=== PATIENT | female | born 1965 | race American Indian/Alaskan Native ===

== ENCOUNTER 2017-06-11 16:05 | Emergency (ER) | payer SELFPAY ==
[2017-06-11 16:11] VITALS: BP 134/96
[2017-06-11 16:38] LABS: Bilirubin,Urine Negative (Negative); Blood,Urine Small (Negative); Color,Urine Yellow (Yellow)
[2017-06-11 16:40] LABS: Urobilinogen,Urine < 2.0 mg/dL (<2.0)
[2017-06-11 16:43] LABS: Calcium Oxalate Crystals,Urine 1+
[2017-06-11 16:48] LABS: Eosinophils # (Auto) 0.1 K/mm3 (0.0-0.4); Eosinophils % (Auto) 1.6 % (0.0-4.3); Hematocrit 47.9 % (30.3-42.9); Hemoglobin 15.7 gm/dl (10.1-14.3); Lymphocytes # (Auto) 1.8 K/mm3 (1.2-5.4); Lymphocytes % (Auto) 44.1 % (13.4-35.0); Mean Corpuscular HGB Conc 33 % (30-34); Mean Corpuscular Hemoglobin 28 pg (28-32); Mean Corpuscular Volume 86 fl (79-97); Monocytes # (Auto) 0.3 K/mm3 (0.0-0.8); Monocytes % (Auto) 7.3 % (0.0-7.3); Platelet Count 274 K/mm3 (140-440); Red Blood Count 5.55 M/mm3 (3.65-5.03); Red Cell Distribution Width 14.9 % (13.2-15.2)
[2017-06-11 17:00] LABS: Alanine Aminotransferase 9 units/L (7-56); Albumin 3.9 g/dL (3.9-5); BUN/Creatinine Ratio 15; Blood Urea Nitrogen 12 mg/dL (7-17); Calcium 9.6 mg/dL (8.4-10.2); Hemolysis Index 13; Lipase 22 units/L (13-60)
--- NOTE | 2017-06-11 18:05 | Emergency Department Report ---
HPI - General Chief Complaint: Medical Clearance Time Seen by Provider: 06/11/17 18:02 - HPI HPI: 52-year-old black female present with complaints of intermittent constipation with other periods of loose stool leakage. No nausea, no vomiting no fever no chills. ED Past Medical Hx - Past Medical History Hx Hypertension: No Hx CVA: No Hx Psychiatric Treatment: Yes (bipolar, schizo, anxiety, substance abuse) - Surgical History Additional Surgical History: Partial hyster. ectopic - Social History Smoking Status: Never Smoker Substance Use Type: Alcohol, Cocaine - Medications Home Medications: Home Medications Medication Instructions Recorded Confirmed Last Taken Type Famotidine [Pepcid] 20 mg PO BID #60 tablet 08/09/15 Unknown Rx Ibuprofen [Motrin] 800 mg PO Q8HR PRN #30 tablet 08/09/15 Unknown Rx Docusate Sodium [Colace] 100 mg PO BID #60 capsule 06/11/17 Unknown Rx ED Review of Systems ROS: Stated complaint: DIZZINESS Other details as noted in HPI Comment: All other systems reviewed and negative Cardiovascular: denies: chest pain Gastrointestinal: constipation. denies: abdominal pain, nausea, vomiting Physical Exam - Physical Exam Vital Signs: Vital Signs 06/11/17 16:07 Temperature 98.4 F Pulse Rate 98 H Respiratory 18 Rate Blood Pressure 134/96 O2 Sat by Pulse 100 Oximetry Physical Exam: - Physical Exam Physical Exam: - General Limitations: No Limitations General appearance: alert, in no apparent distress. - Head Head exam: Present: atraumatic, normocephalic - Eye Eye exam: Present: normal appearance - ENT ENT exam: Present: mucous membranes moist - Neck Neck exam: Present: normal inspection - Respiratory Respiratory exam: Present: normal lung sounds bilaterally. Absent: respiratory distress - Cardiovascular Cardiovascular Exam: Present: normal rhythm. Absent: systolic murmur, diastolic murmur, rubs, gallop - GI/Abdominal GI/Abdominal exam: Present: soft, normal bowel sounds - Extremities Exam Extremities exam: Present: normal inspection - Back Exam Back exam: Present: normal inspection - Neurological Exam Neurological exam: Present: alert, oriented X3 - Psychiatric Psychiatric exam: normal affect and mood - Skin Skin exam: Present: warm, dry, intact, normal color. Absent: rash ED Course Vital Signs 06/11/17 16:07 Temperature 98.4 F Pulse Rate 98 H Respiratory 18 Rate Blood Pressure 134/96 O2 Sat by Pulse 100 Oximetry ED Medical Decision Making - Lab Data Result diagrams: 06/11/17 16:36 06/11/17 16:36 Critical care attestation.: If time is entered above; I have spent that time in minutes in the direct care of this critically ill patient, excluding procedure time. ED Disposition Clinical Impression: Constipation Qualifiers: Constipation type: other constipation type Qualified Code(s): K59.09 - Other constipation Disposition: DC- TO HOME OR SELFCARE Is pt being admited?: No Does the pt Need Aspirin: No Condition: Stable Prescriptions: Docusate Sodium [Colace] 100 mg PO BID #60 capsule Referrals: PRIMARY CARE, [Primary Care Provider] - 3-5 Days
== END 2017-06-11 19:10 | disposition home or self-care (01) ==
LOC: ED 16:05
DX: K59.00 Constipation, unspecified (principal); F31.9 Bipolar disorder, unspecified; F41.9 Anxiety disorder, unspecified; F20.9 Schizophrenia, unspecified; Z90.711 Acquired absence of uterus with remaining cervical stump
CPT/HCPCS: 36415; 80053; 81001; 83690; 85025; 99283

== ENCOUNTER 2018-02-21 21:50 | Emergency (ER) | payer SELFPAY ==
[2018-02-21] MEDS ORDERED: TYLENOL ONE (22:07)
[2018-02-21 22:11] VITALS: BP 126/76
[2018-02-22] MEDS ORDERED: TYLENOL PO ONE (01:16)
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
[2018-02-22] MEDS ORDERED: FLAGYL PO ONE (02:42)
[2018-02-22] MEDS ORDERED: ZITHROMAX PO ONE (02:42)
[2018-02-22] MEDS ORDERED: ROCEPHIN IM ONE (02:42)
[2018-02-22] MEDS ORDERED: XYLOCAINE 1% MPF 5 mL INFILTRATI ONE (02:42)
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
== END 2018-02-22 03:40 | disposition home or self-care (01) ==
LOC: ED 21:50
DX: S16.1XXA Strain of muscle, fascia and tendon at neck level, initial encounter (principal); F31.9 Bipolar disorder, unspecified; F20.9 Schizophrenia, unspecified; F41.9 Anxiety disorder, unspecified; F17.200 Nicotine dependence, unspecified, uncomplicated; Z88.5 Allergy status to narcotic agent; Z90.711 Acquired absence of uterus with remaining cervical stump; Y04.8XXA Assault by other bodily force, initial encounter; Y93.89 Activity, other specified; Y92.89 Other specified places as the place of occurrence of the external cause; Y99.8 Other external cause status
CPT/HCPCS: 70450; 72125; 99284

== ENCOUNTER 2018-10-05 08:31 | Emergency (ER) | payer SELFPAY ==
[2018-10-05 08:38] VITALS: BP 141/99
[2018-10-05] MEDS ORDERED: ULTRAM PO ONE (10:17)
[2018-10-05] MEDS ORDERED: ANTIBIOTIC OINT TP ONE (10:17)
--- NOTE | 2018-10-05 10:26 | Emergency Department Report ---
HPI - General Chief Complaint: Skin/Abscess/Foreign Body Time Seen by Provider: 10/05/18 10:09 - HPI HPI: Room 39 The pt is a 53 y/o F p/w a cc of Left ear pain. The pt c/o pain to the left ear for 2-3 days. The pt states it feels as though there is a bug in her ear as she occ feels it move. Pt c/o pain. ED Past Medical Hx - Past Medical History Hx Psychiatric Treatment: Yes (bipolar, schizo, anxiety, substance abuse) - Surgical History Additional Surgical History: Partial hyster. ectopic - Family History Family history: no significant - Social History Smoking Status: Current Every Day Smoker (1/2 ppd) Substance Use Type: None (denies illicit drug use), Alcohol (occ) - Medications Home Medications: Home Medications Medication Instructions Recorded Confirmed Last Taken Type Famotidine [Pepcid] 20 mg PO BID #60 tablet 08/09/15 Unknown Rx Ibuprofen [Motrin] 800 mg PO Q8HR PRN #30 tablet 08/09/15 Unknown Rx Docusate Sodium [Colace] 100 mg PO BID #60 capsule 06/11/17 Unknown Rx Menthol/Camphor [[place] [facility] 1 applicatio TP QID PRN #1 tube 02/22/18 Unknown Rx Ointment] Tramadol HCl [Ultram] 50 mg PO Q6H PRN #12 tablet 02/22/18 Unknown Rx Bacitracin Zinc Oint [Antibiotic 1 applicatio TP TID #1 tube 10/05/18 Unknown Rx Oint] traMADol [Ultram] 50 mg PO Q6HR PRN #10 tablet 10/05/18 Unknown Rx ED Review of Systems ROS: Stated complaint: LFT EAR BUG/PAIN Other details as noted in HPI Constitutional: no symptoms reported Eyes: denies: eye pain ENT: ear pain Respiratory: no symptoms reported Cardiovascular: denies: chest pain Endocrine: no symptoms reported Gastrointestinal: denies: abdominal pain Genitourinary: denies: dysuria Musculoskeletal: denies: back pain Neurological: denies: headache Psychiatric: denies: homicidal thoughts, suicidal thoughts Physical Exam - Physical Exam Vital Signs: Vital Signs 10/05/18 08:35 Temperature 97.8 F Pulse Rate 91 H Respiratory 16 Rate Blood Pressure 141/99 O2 Sat by Pulse 100 Oximetry Physical Exam: Gen: WD, WN F lying on stretcher in NAD HEENT: NCAT, small subacute appearing ulceration to the left Maria Eugenia cavum ~1 cm in diameter. no drainage. TM clear. Scant amount of cerumen in canal but grossly unremarkable. No fb present Neck: Trachea midline Pulm: CTA B CV: rrr no m/r/g Abd: S/ND +BS, mild discomfort to palpation in the LLQ, RLQ and RUQ. no reboun d/guarding Skin: no diaphoresis Neuro: gcs 15 MS: no evidence of acute injury ED Course Vital Signs 10/05/18 08:35 Temperature 97.8 F Pulse Rate 91 H Respiratory 16 Rate Blood Pressure 141/99 O2 Sat by Pulse 100 Oximetry ED Medical Decision Making - Differential Diagnosis ulcer, malignancy Critical care attestation.: If time is entered above; I have spent that time in minutes in the direct care of this critically ill patient, excluding procedure time. ED Disposition Clinical Impression: Skin ulcer, Ear pain, left Disposition: DC-01 TO HOME OR SELFCARE Is pt being admited?: No Does the pt Need Aspirin: No Condition: Stable Instructions: Earache (ED) Prescriptions: Bacitracin Zinc Oint [Antibiotic Oint] 1 applicatio TP TID #1 tube traMADol [Ultram] 50 mg PO Q6HR PRN #10 tablet PRN Reason: Pain Referrals: SKYLER MOSCOSO MD [Staff Physician] - [facility] [place] (Dr Moscoso is an Ear Nose and Throat docotr. Please follow up with her for further evaluation) Time of Disposition: 10:30
[2018-10-05] MEDS ORDERED: TRIPLE ANTIBIOTIC TP ONE ×2 (10:36→10:37)
== END 2018-10-05 10:44 | disposition home or self-care (01) ==
LOC: ED 08:31
DX: H92.02 Otalgia, left ear (principal); L98.499 Non-pressure chronic ulcer of skin of other sites with unspecified severity; F31.9 Bipolar disorder, unspecified; F20.9 Schizophrenia, unspecified; F17.210 Nicotine dependence, cigarettes, uncomplicated; Z90.710 Acquired absence of both cervix and uterus; Z88.6 Allergy status to analgesic agent; Z79.899 Other long term (current) drug therapy
CPT/HCPCS: 99282; A6250

== ENCOUNTER 2018-10-19 15:47 | Inpatient (IN) | payer OTHER ==
[2018-10-19] MEDS ORDERED: NACL 0.9% 500 ML 500 ML IV ONE (15:54)
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
[2018-10-19 16:25] LABS: Hematocrit 40.4 % (30.3-42.9); Hemoglobin 13.2 gm/dl (10.1-14.3); Mean Corpuscular HGB Conc 33 % (30-34); Mean Corpuscular Volume 85 fl (79-97); Platelet Count 165 K/mm3 (140-440); Red Blood Count 4.76 M/mm3 (3.65-5.03); Red Cell Distribution Width 13.6 % (13.2-15.2)
[2018-10-19 16:37] LABS: Albumin 3.1 g/dL (3.9-5)
[2018-10-19 16:38] LABS: INR 1.22 (0.87-1.13)
--- NOTE | 2018-10-19 16:38 | Emergency Department Report ---
HPI - General Chief Complaint: Fever Time Seen by Provider: 10/19/18 15:54 - HPI HPI: 53-year-old -[place] female presents to the emergency department with the complaint of a 3 to four-day history of fever, nausea, vomiting, diarrhea and abdominal pain. She was initiated as a code sepsis secondary to her complaints with fever and tachycardia noted on vitals. She has a past medical history of bipolar disorder, schizophrenia, anxiety and previous substance abuse. She is a tobacco smoker but denies any recent illicit drug use. She has a surgical history of a partial hysterectomy and a previous ectopic . She has not taken anything for her symptoms prior to arrival. She does not have a primary care physician. ED Past Medical Hx - Past Medical History Previous Medical History?: Yes Hx Hypertension: No Hx CVA: No Hx Psychiatric Treatment: Yes (bipolar, schizo, anxiety, substance abuse) - Surgical History Past Surgical History?: Yes Additional Surgical History: Partial hyster. ectopic - Social History Smoking Status: Current Every Day Smoker Substance Use Type: None - Medications Home Medications: Home Medications Medication Instructions Recorded Confirmed Last Taken Type Famotidine [Pepcid] 20 mg PO BID #60 tablet 08/09/15 Unknown Rx Ibuprofen [Motrin] 800 mg PO Q8HR PRN #30 tablet 08/09/15 Unknown Rx Docusate Sodium [Colace] 100 mg PO BID #60 capsule 06/11/17 Unknown Rx Menthol/Camphor [[place] 1 applicatio TP QID PRN #1 tube 02/22/18 Unknown Rx Ointment] Tramadol HCl [Ultram] 50 mg PO Q6H PRN #12 tablet 02/22/18 Unknown Rx Bacitracin Zinc Oint [Antibiotic 1 applicatio TP TID #1 tube 10/05/18 Unknown Rx Oint] traMADol [Ultram] 50 mg PO Q6HR PRN #10 tablet 10/05/18 Unknown Rx ED Review of Systems ROS: Stated complaint: FEVER/ACHES/DIARRHEA Other details as noted in HPI Comment: All other systems reviewed and negative Constitutional: chills, fever Eyes: denies: eye pain, vision change ENT: denies: ear pain, throat pain Respiratory: denies: shortness of breath, wheezing Cardiovascular: denies: chest pain, palpitations Gastrointestinal: abdominal pain, nausea, vomiting, diarrhea Genitourinary: denies: dysuria, discharge Musculoskeletal: denies: back pain, arthralgia Skin: denies: rash, lesions Neurological: denies: headache, weakness Physical Exam - Physical Exam Vital Signs: Vital Signs 10/19/18 15:55 Temperature 101.4 F H Pulse Rate 116 H Respiratory 16 Rate Blood Pressure 70/47 Physical Exam: GENERAL: The patient is well-developed well-nourished. HENT: Normocephalic. Atraumatic. Patient has moist mucous membranes. EYES: Extraocular motions are intact. Pupils equal reactive to light bilaterally. NECK: Supple. Trachea is midline. CHEST/LUNGS: Clear to auscultation. There is no respiratory distress noted. HEART/CARDIOVASCULAR: Regular. There is mild tachycardia. There is no murmur. ABDOMEN: Abdomen is soft. There is some right upper quadrant and lower abdominal tenderness to palpation. No guarding. Patient has normal bowel sounds. There is no abdominal distention. SKIN: Skin is warm and dry. NEURO: The patient is awake, alert, and oriented. The patient is cooperative. The patient has no focal neurologic deficits. Normal speech. MUSCULOSKELETAL: There is no tenderness or deformity. There is no evidence of acute injury. ED Course Vital Signs 10/19/18 15:55 Temperature 101.4 F H Pulse Rate 116 H Respiratory 16 Rate Blood Pressure 70/47 ED Medical Decision Making - Lab Data Result diagrams: 10/19/18 15:58 10/19/18 15:58 - Radiology Data Radiology results: report reviewed, image reviewed interpreted by me: Chest x-ray does not show any acute process. There are no pleural effusions, obvious pneumonia and there is no pneumothorax. Abdominal x-ray showed nonspecific nonobstructive bowel gas CT abdomen pelvis wo con INDICATION: Right sided abd pain, renal insuff, fever. TECHNIQUE: All CT scans at this location are performed using the following dose modulation technique: Automated exposure control. Helical slices were obtained through the abdomen and pelvis. No contrast is administered. COMPARISON: 08/08/2015, CT scan FINDINGS: Abdomen: Lung bases are clear. Liver, spleen, pancreas, adrenal glands, and kidneys are grossly unremarkable on this noncontrasted study. There is a paucity of fat in the abdomen. Combination of lack of contrast and fat. There appears to be soft tissue structure in the retroperitoneum left para-aortic location which could represent an enlarged lymph node. Measures approximately 17 mm. Possible this could be vascular or represent collateral veins. There is no obstruction, inflammation, or free air. There are no abnormal collections. Pelvis: Bowel contained within the pelvis is unremarkable. There is no inflammatory change. There are no abnormal c ollections. On review of bone windows, no acute osseous abnormalities are seen. IMPRESSION: 1. There is a 1.7 cm soft tissue density structure in the left retroperitoneum possibly representing an enlarged lymph node. It is possible this could represent collateral veins. There is no obstruction, inflammation, or free air. There are no abnormal fluid collections. No renal or ureteral calculi are seen. There is no hydronephrosis. - Medical Decision Making This patient presents as a code stroke with a 3 to four-day history of some abdominal pain, nausea, vomiting and diarrhea. She presented with some hypotension and immediately was given some IV fluid resuscitation with some improvement. She was given a dose of Zofran and Zosyn. Chest x-ray did not ame w any pneumonia, pleural effusions or any other acute process. Abdominal x-ray shows nonspecific nonobstructive bowel gas. Labs show a mild leukocytosis, some renal insufficiency and a urinary tract infection. The patient had a CT scan of the abdomen and pelvis without contrast that does not show any significant or acute process other than a possible retroperitoneal lymph node. The patient will be admitted to the hospital for further evaluation and treatment and was accepted for admission by the hospitalist service. - Differential Diagnosis UTI, appendicitis, colitis, diverticulitis, C. difficile Critical Care Time: Yes Critical care time in (mins) excluding proc time.: 35 Critical care attestation.: If time is entered above; I have spent that time in minutes in the direct care of this critically ill patient, excluding procedure time. Critical care time was spent on this patient and doing her initial evaluation, multiple re- evaluations, ordering and interpretation of labs and imaging, ordering of IV fluid resuscitation and antibiotics, discussion with the patient and the hosp italist service. Critical Care Time: 35 minutes ED Disposition Clinical Impression: Dehydration Sepsis Qualifiers: Sepsis type: sepsis due to unspecified organism Sepsis acute organ dysfunction status: with acute organ dysfunction Severe sepsis acute organ dysfunction type: acute renal failure Acute renal failure type: unspecified Severe sepsis shock status: unspecified Qualified Code(s): A41.9 - Sepsis, unspecified organism; R65.20 - Severe sepsis without septic shock; N17.9 - Acute kidney failure, unspecified UTI (urinary tract infection) Qualifiers: Urinary tract infection type: acute cystitis Hematuria presence: without hematuria Qualified Code(s): N30.00 - Acute cystitis without hematuria Hypotension Qualifiers: Hypotension type: unspecified hypotension type Qualified Code(s): I95.9 - Hypotension, unspecified Nausea & vomiting Qualifiers: Vomiting type: unspecified Vomiting Intractability: non-intractable Qualified Code(s): R11.2 - Nausea with vomiting, unspecified Abdominal pain Qualifiers: Abdominal location: generalized Qualified Code(s): R10.84 - Generalized abdominal pain Acute renal failure Qualifiers: Acute renal failure type: unspecified Qualified Code(s): N17.9 - Acute kidney failure, unspecified Disposition: 09 OP ADMIT IP TO THIS HOSP Is pt being admited?: Yes Condition: Serious Time of Disposition: 19:23
[2018-10-19] MEDS ORDERED: TYLENOL PO ONE (16:39)
[2018-10-19] MEDS ORDERED: ZOFRAN IV ONE (16:39)
[2018-10-19] MEDS ORDERED: ZOSYN/NS 4.5GM/100ML 4.5 GM/100 ML VIAL IV ONE (16:40)
--- NOTE | 2018-10-19 17:13 | XRay Report ---
ABDOMEN 3 VIEW(S) INDICATION / CLINICAL INFORMATION: abd pain, sepsis. COMPARISON: None available. FINDINGS: There is no acute pleural or pulmonary disease on the chest x-ray TUBES / LINES: None. BOWEL GAS PATTERN: No significant abnormality. FREE AIR / EXTRALUMINAL GAS: None seen. ADDITIONAL FINDINGS: No significant additional findings. IMPRESSION: 1. No significant abnormality. Signer Name: J Carlos Kilgore MD Signed: 10/19/2018 5:08 PM Workstation Name: [id number]
[2018-10-19 17:21] LABS: RBC Morphology Normal; Total Cells Counted 100
[2018-10-19] MEDS ORDERED: NACL 0.9% 1000 ML 1,000 ML IV ONE ×2 (17:30→19:23)
[2018-10-19 17:52] LABS: Bilirubin,Urine NEG (Negative); Blood,Urine MOD (Negative); Color,Urine Amber (Yellow); Urobilinogen,Urine < 2.0 mg/dL (<2.0)
[2018-10-19 17:54] LABS: Protein,Urine >500 mg/dL (Negative); WBC,Urine > 182.0 /HPF (0.0-6.0)
--- NOTE | 2018-10-19 19:00 | Cat Scan Report ---
CT abdomen pelvis wo con INDICATION: Right sided abd pain, renal insuff, fever. TECHNIQUE: All CT scans at this location are performed using the following dose modulation technique: Automated exposure control. Helical slices were obtained through the abdomen and pelvis. No contrast is adminis tered. COMPARISON: 08/08/2015, CT scan FINDINGS: Abdomen: Lung bases are clear. Liver, spleen, pancreas, adrenal glands, and kidneys are grossly unrem arkable on this noncontrasted study. There is a paucity of fat in the abdomen. Combination of lack of contrast and fat. There appears to be soft tissue structure in the retroperitoneum left para-aortic location which coul d represent an enlarged lymph node. Measures approximately 17 mm. Possible this could be vascular or represent collateral veins. There is no obstruction, inflammation, or free air. There are no abnormal collections. Pelvis: Bowel contained within the pelvis is unremarkable. There is no inflammatory change. There are no abnormal collections. On review of bone windows, no acute osseous abnormalities are seen. IMPRESSION: 1. There is a 1.7 cm soft tissue density structure in the left retroperitoneum possibly representing an enlarged lymph node. It is possible this could represent collateral veins. There is no obstruction, inflammation, or free air. There are no abnormal fluid collections. No renal or ureteral calculi are seen. There is no hydronephrosis. Signer Name: Edmond Garcia MD Signed: 10/19/2018 6:56 PM Workstation Name: [id number]
[2018-10-19] MEDS ORDERED: ATIVAN IV PRN (20:03)
[2018-10-19] MEDS ORDERED: NACL 0.9% 1000 ML 1,000 ML ONE (21:21)
[2018-10-19] MEDS ORDERED: HEPARIN ONE (21:21)
--- NOTE | 2018-10-19 21:49 | History and Physical Report ---
History of Present Illness Date of examination: 10/19/18 Date of admission: 10/19/18 20:03 Chief complaint: fever, nausea, vomiting, diarrhea and abdominal pain History of present illness: 53-year-old -Citizen Of [place] female with history of bipolar, schizophrenia, anxiety, substance abuse, tobacco abuse, marijuana abuse who presents [facility] with complaints of abdominal pain, nausea, vomiting, diarrhea, fever and chills for the past 3-4 days. She describes her abdominal pain as crampy/achy which is accompanied by nausea, vomiting, and diarrhea. She rates her pain 4/10. Patient states that she thinks she had a fever but does not have a thermometer so was unable to check her temperature. She also reports periods of feeling really hot followed by chills. She has not taken anything to treat her symptoms. She does not have primary care physician and has not seen a doctor in over a year. Denies: Headache, hematemesis, hemoptysis, hematochezia, visual disturbances, gait dysfunction, or recent sick contact Past History Past Medical History: other (bipolar, schizophrenia, anxiety, substance abuse) Past Surgical History: hysterectomy (partial), Other (ectopic ) Social history: Lives alone, smoking (current activities smoker), other (marijuana abuse) Family history: no significant family history Medications and Allergies Allergies Allergy/AdvReac Type Severity Reaction Status Date / Time codeine Allergy Vomiting Verified 10/05/18 08:32 Home Medications Medication Instructions Recorded Confirmed Last Taken Type Famotidine [Pepcid] 20 mg PO BID #60 tablet 08/09/15 Unknown Rx Ibuprofen [Motrin] 800 mg PO Q8HR PRN #30 tablet 08/09/15 Unknown Rx Docusate Sodium [Colace] 100 mg PO BID #60 capsule 06/11/17 Unknown Rx Menthol/Camphor [[place] 1 applicatio TP QID PRN #1 tube 02/22/18 Unknown Rx Ointment] Tramadol HCl [Ultram] 50 mg PO Q6H PRN #12 tablet 02/22/18 Unknown Rx Bacitracin Zinc Oint [Antibiotic 1 applicatio TP TID #1 tube 10/05/18 Unknown Rx Oint] traMADol [Ultram] 50 mg PO Q6HR PRN #10 tablet 10/05/18 Unknown Rx Active Meds: Active Medications Acetaminophen (Tylenol) 650 mg PO Q6H PRN PRN Reason: Pain, Mild (1-3) Heparin Sodium (Porcine) (Heparin) 5,000 unit SUB-Q Q12HR KAY Sodium Chloride (Nacl 0.9% 1000 Ml) 1,000 mls @ 250 mls/hr IV ONCE ONE Stop: 10/19/18 23:22 Ceftriaxone Sodium (Rocephin/Ns 1 Gm/50 Ml) 1 gm in 50 mls @ 100 mls/hr IV Q24HR KAY; Protocol Stop: 10/22/18 10:29 Sodium Chloride (Nacl 0.9% 1000 Ml) 1,000 mls @ 125 mls/hr IV DIRECT KAY Lorazepam (Ativan) 0.5 mg IV Q4H PRN PRN Reason: Anxiety Nicotine (Habitrol) 14 mg TD QDAY KAY Review of Systems All systems: negative Gastrointestinal: abdominal pain, nausea, vomiting, diarrhea Exam - Physical Exam Narrative exam: Physical exam General appearance: Present: No acute distress, confused, oriented 3, disheveled, thin, middle-aged adult -Citizen Of [place] female - EENT Eyes: Present: PERRL, EOM ENT: hearing intact, poor dentition - Neck Neck: Present: supple, normal ROM - Respiratory Respiratory effort: Non-labored Respiratory: CTA bilaterally - Cardiovascular Heart rate: 75(bpm) Rhythm: SR Heart Sounds: Present: S1 & S2. Absent: rub, click - Extremities Extremities: no ischemia, pulses intact, - Peripheral Assessment Peripheral Pulses: within normal limits - Abdominal General gastrointestinal: soft, non-tender, normal bowel sounds - Integumentary Integumentary: Present: warm, dry, - Musculoskeletal Musculoskeletal: Normal gait -Neurological Neurological: CN II-XII grossly intact - Psychiatric Psychiatric: cooperative - Constitutional Vitals: Temp Pulse Resp BP Pulse Ox 99.4 F 75 18 90/55 98 10/19/18 18:05 10/19/18 19:16 10/19/18 19:16 10/19/18 19:16 10/19/18 19:16 Results - Labs CBC & Chem 7: 10/19/18 15:58 10/19/18 15:58 Labs: Laboratory Last Values WBC 13.0 K/mm3 (4.5-11.0) H 10/19/18 15:58 RBC 4.76 M/mm3 (3.65-5.03) 10/19/18 15:58 Hgb 13.2 gm/dl (10.1-14.3) 10/19/18 15:58 Hct 40.4 % (30.3-42.9) 10/19/18 15:58 MCV 85 fl (79-97) 10/19/18 15:58 MCH 28 pg (28-32) 10/19/18 15:58 MCHC 33 % (30-34) 10/19/18 15:58 RDW 13.6 % (13.2-15.2) 10/19/18 15:58 Plt Count 165 K/mm3 (140-440) 10/19/18 15:58 Add Manual Diff Complete 10/19/18 15:58 Total Counted 100 10/19/18 15:58 Seg Neuts % (Manual) 85.0 % (40.0-70.0) H 10/19/18 15:58 0 % 10/19/18 15:58 7.0 % (13.4-35.0) L 10/19/18 15:58 Reactive Lymphs % (Man) 0 % 10/19/18 15:58 5.0 % (0.0-7.3) 10/19/18 15:58 2.0 % (0.0-4.3) 10/19/18 15:58 1.0 % (0.0-1.8) 10/19/18 15:58 0 % 10/19/18 15:58 0 % 10/19/18 15:58 0 % 10/19/18 15:58 0 % 10/19/18 15:58 Nucleated RBC % Not Reportable 10/19/18 15:58 Seg Neutrophils # Man 11.1 K/mm3 (1.8-7.7) H 10/19/18 15:58 Band Neutrophils # 0.0 K/mm3 10/19/18 15:58 0.9 K/mm3 (1.2-5.4) L 10/19/18 15:58 Abs React Lymphs (Man) 0.0 K/mm3 10/19/18 15:58 0.7 K/mm3 (0.0-0.8) 10/19/18 15:58 0.3 K/mm3 (0.0-0.4) 10/19/18 15:58 0.1 K/mm3 (0.0-0.1) 10/19/18 15:58 0.0 K/mm3 10/19/18 15:58 0.0 K/mm3 10/19/18 15:58 0.0 K/mm3 10/19/18 15:58 Blast Cells # 0.0 K/mm3 10/19/18 15:58 WBC Morphology Not Reportable 10/19/18 15:58 Hypersegmented Neuts Not Reportable 10/19/18 15:58 Hyposegmented Neuts Not Reportable 10/19/18 15:58 Hypogranular Neuts Not Reportable 10/19/18 15:58 Not Reportable 10/19/18 15:58 Not Reportable 10/19/18 15:58 Not Reportable 10/19/18 15:58 Not Reportable 10/19/18 15:58 Not Reportable 10/19/18 15:58 Not Reportable 10/19/18 15:58 Not Reportable 10/19/18 15:58 Not Reportable 10/19/18 15:58 Plt Clumps, EDTA Not Reportable 10/19/18 15:58 Not Reportable 10/19/18 15:58 Not Reportable 10/19/18 15:58 Not Reportable 10/19/18 15:58 Plt Morphology Comment Not Reportable 10/19/18 15:58 RBC Morphology Normal 10/19/18 15:58 Dimorphic RBCs Not Reportable 10/19/18 15:58 Not Reportable 10/19/18 15:58 Not Reportable 10/19/18 15:58 Not Reportable 10/19/18 15:58 Not Reportable 10/19/18 15:58 Not Reportable 10/19/18 15:58 Not Reportable 10/19/18 15:58 Not Reportable 10/19/18 15:58 Not Reportable 10/19/18 15:58 Not Reportable 10/19/18 15:58 Not Reportable 10/19/18 15:58 Not Reportable 10/19/18 15:58 Not Reportable 10/19/18 15:58 Not Reportable 10/19/18 15:58 Not Reportable 10/19/18 15:58 Not Reportable 10/19/18 15:58 Not Reportable 10/19/18 15:58 Not Reportable 10/19/18 15:58 Not Reportable 10/19/18 15:58 Not Reportable 10/19/18 15:58 Acanthocytes (Spur) Not Reportable 10/19/18 15:58 Rouleaux Not Reportable 10/19/18 15:58 Not Reportable 10/19/18 15:58 Not Reportable 10/19/18 15:58 Not Reportable 10/19/18 15:58 Not Reportable 10/19/18 15:58 Hem Pathologist Commnt No 10/19/18 15:58 PT 15.1 Sec. (12.2-14.9) H 10/19/18 15:58 INR 1.22 (0.87-1.13) H 10/19/18 15:58 VBG pH 7.487 (7.320-7.420) H 10/19/18 15:58 Sodium 136 mmol/L (137-145) L 10/19/18 15:58 Potassium 3.4 mmol/L (3.6-5.0) L 10/19/18 15:58 Chloride 99.8 mmol/L (98-107) 10/19/18 15:58 Carbon Dioxide 22 mmol/L (22-30) 10/19/18 15:58 18 mmol/L 10/19/18 15:58 BUN 19 mg/dL (7-17) H 10/19/18 15:58 1.8 mg/dL (0.7-1.2) H 10/19/18 15:58 Estimated GFR 36 ml/min 10/19/18 15:58 11 % 10/19/18 15:58 Glucose 139 mg/dL (65-100) H 10/19/18 15:58 Lactic Acid 1.80 mmol/L (0.7-2.0) 10/19/18 20:56 Calcium 9.0 mg/dL (8.4-10.2) 10/19/18 15:58 0.70 mg/dL (0.1-1.2) 10/19/18 15:58 AST 26 units/L (5-40) 10/19/18 15:58 ALT 21 units/L (7-56) 10/19/18 15:58 85 units/L (35-129) 10/19/18 15:58 7.0 g/dL (6.3-8.2) 10/19/18 15:58 3.1 g/dL (3.9-5) L 10/19/18 15:58 0.8 % 10/19/18 15:58 Verito (Yellow) 10/19/18 17:21 Turbid (Clear) 10/19/18 17:21 6.0 (5.0-7.0) 10/19/18 17:21 Ur Specific [place] 1.016 (1.003-1.030) 10/19/18 17:21 >500 mg/dL (Negative) 10/19/18 17:21 Neg mg/dL (Negative) 10/19/18 17:21 Neg mg/dL (Negative) 10/19/18 17:21 Mod (Negative) 10/19/18 17:21 Neg (Negative) 10/19/18 17:21 Neg (Negative) 10/19/18 17:21 < 2.0 mg/dL (<2.0) 10/19/18 17:21 Ur Leukocyte Esterase Mod (Negative) 10/19/18 17:21 > 182.0 /HPF (0.0-6.0) H 10/19/18 17:21 22.0 /HPF (0.0-6.0) 10/19/18 17:21 U Epithel Cells (Auto) 33.0 /HPF (0-13.0) H 10/19/18 17:21 3+ /HPF 10/19/18 17:21 2+ /HPF 10/19/18 17:21 - Imaging and Cardiology Imaging and Cardiology: Abd XR: FINDINGS: There is no acute pleural or pulmonary disease on the chest x-ray TUBES / LINES: None. BOWEL GAS PATTERN: No significant abnormality. FREE AIR / EXTRALUMINAL GAS: None seen. ADDITIONAL FINDINGS: No significant additional findings. IMPRESSION: 1. No significant abnormality. CT ABD/Pelvis FINDINGS: Abdomen: Lung bases are clear. Liver, spleen, pancreas, adrenal glands, and kidneys are grossly unremarkable on this noncontrasted study. There is a paucity of fat in the abdomen. Combination of lack of contrast and fat. There appears to be soft tissue structure in the retroperitoneum left para- aortic location which could represent an enlarged lymph node. Measures approximately 17 mm. Possible this could be vascular or represent collateral veins. There is no obstruction, inflammation, or free air. There are no abnormal collections. Pelvis: Bowel contained within the pelvis is unremarkable. There is no inflammatory change. There are no abnormal collections. On review of bone windows, no acute osseous abnormalities are seen. IMPRESSION: 1. There is a 1.7 cm soft tissue density structure in the left retroperitoneum possibly representing an enlarged lymph node. It is possible this could represent collateral veins. There is no obstruction, inflammation, or free air. There are no abnormal fluid collections. No renal or ureteral calculi are seen. There is no hydronephrosis. Assessment and Plan Assessment and plan: 53-year-old -Citizen Of [place] female with history of bipolar, schizophrenia, a nxiety, substance abuse, tobacco abuse, marijuana abuse who presents [facility] ED with complaints of abdominal pain, nausea, vomiting, diarrhea, fever and chills for the past 3-4 days. Sepsis -They secondary to urinary tract infection -Leukocytosis 13.0 -MAXIMUM TEMPERATURE 101.4 -hypotensive -Hydrate with IVF -Cultures pending UTI -Urine WBC >182 -Urine culture pending -Start on IV Abx SOLA -Cr 1.8 on admission -Baseline creatinine 0.8 (06/2017) -Receiving IVF -Avoid nephrotoxic agents -Renal dose all meds -Will consider Nephrology consult if no improvement in Cr Hypokalemia -mild -3.4 on admission -Repleted -Continue to monitor electrolytes, replete prn Tobacco Abuse -Current every day smokes -Counseled for cessation -Nicotine patch PRN Marijuana Abuse -Reports daily marijuana use -Counseled for cessation -UDS pending Mild to moderate malnutrition -Albumin 3.1 -Poor oral intake -Dietitian consulted DVT PPX -on Heparin Advance Directives: No VTE prophylaxis?: Chemical Plan of care discussed with patient/family: Yes
[2018-10-19] MEDS ORDERED: K-DUR PO ONE (21:53)
[2018-10-19] MEDS: HEPARIN SUB-Q SCH (22:54)
[2018-10-19 23:40] LABS: Amphetamine Screen,Urine PRESUMPTIVE NEGATIVE; Benzodiazepines Screen,Urine PRESUMPTIVE NEGATIVE; Cannabinoid Screen,Urine PRESUMPTIVE NEGATIVE; Methadone Screen,Urine PRESUMPTIVE NEGATIVE; Opiate Screen,Urine PRESUMPTIVE NEGATIVE
[2018-10-20 00:16] LABS: Cocaine Screen,Urine PRESUMPTIVE POSITIVE
[2018-10-20] MEDS: HABITROL TD SCH (09:55)
[2018-10-20] MEDS: HEPARIN SUB-Q SCH ×2 (09:55→21:01)
[2018-10-20] MEDS: NACL 0.9% 1000 ML 1,000 ML IV SCH ×2 (09:57→17:47)
--- NOTE | 2018-10-20 11:52 | Progress Note ---
Assessment and Plan Assessment and plan: 53-year-old -[place] female with history of bipolar, schizophrenia, anxiety, substance abuse, tobacco abuse, cocaine abuse was admitted through [facility] with complaints of abdominal pain, nausea, vomiting, diarrhea, fever and chills for the past 3-4 days. --Sepsis; secondary to urinary tract infection Fever , leukocytosis , tachycardia , acute kidney injury Continue empiric antibiotics , follow cultures --Acute kidney injury ; secondary to vasomotor nephropathy Cr 1.8 on admission, continue IV fluids, monitor renal function Avoid nephrotoxins, mild improvement since yesterday --Lactic acidosis; probably secondary to sepsis Follow levels --Hypokalemia; replenished per protocol Monitor electrolytes --Cocaine abuse; Advised to quit recreational drug use --Tobacco Abuse; Smoking cessation advised, nicotine patch as needed --Mild to moderate malnutrition Nutrition supplements, supportive care --History of bipolar disorder; stable Advised to follow behavioral health/psychiatric test upon discharge --DVT PPX; Heparin Monitor closely adjust the management as needed Plan of care is reviewed with the patient and family at the bedside as well as her nodes Patient is stable to be transferred out of telemetry to medical floor Possible discharge in 1-2 days if stable History Interval history: Patient seen and examined medical records reviewed Admitted with fever nausea or vomiting and diarrhea Symptoms slightly better ,but still complains of nausea vomiting Vital signs noted, MAXIMUM TEMPERATURE last 24 hours 101F Patient in mild distress Hospitalist Physical - Constitutional Vitals: Temp Pulse Resp BP Pulse Ox 97.9 F 88 18 109/65 100 10/20/18 04:20 10/20/18 10:52 10/20/18 04:20 10/20/18 04:20 10/20/18 04:20 General appearance: Present: mild distress, cachectic, disheveled - EENT Eyes: Present: PERRL, EOM intact - Neck Neck: Present: supple, normal ROM - Respiratory Respiratory effort: normal Respiratory: bilateral: diminished, negative: rales, rhonchi, wheezing - Cardiovascular Rhythm: regular Heart Sounds: Present: S1 & S2 - Extremities Extremities: no ischemia, No edema - Abdominal General gastrointestinal: soft, non-tender, non-distended, normal bowel sounds - Integumentary Integumentary: Present: clear, warm - Psychiatric Psychiatric: appropriate mood/affect, cooperative - Neurologic Neurologic: CNII-XII intact, moves all extremities Results - Labs CBC & Chem 7: 10/19/18 15:58 10/19/18 15:58 Labs: Laboratory Last Values WBC 13.0 K/mm3 (4.5-11.0) H 10/19/18 15:58 RBC 4.76 M/mm3 (3.65-5.03) 10/19/18 15:58 Hgb 13.2 gm/dl (10.1-14.3) 10/19/18 15:58 Hct 40.4 % (30.3-42.9) 10/19/18 15:58 MCV 85 fl (79-97) 10/19/18 15:58 MCH 28 pg (28-32) 10/19/18 15:58 MCHC 33 % (30-34) 10/19/18 15:58 RDW 13.6 % (13.2-15.2) 10/19/18 15:58 Plt Count 165 K/mm3 (140-440) 10/19/18 15:58 Add Manual Diff Complete 10/19/18 15:58 Total Counted 100 10/19/18 15:58 Seg Neuts % (Manual) 85.0 % (40.0-70.0) H 10/19/18 15:58 0 % 10/19/18 15:58 7.0 % (13.4-35.0) L 10/19/18 15:58 Reactive Lymphs % (Man) 0 % 10/19/18 15:58 5.0 % (0.0-7.3) 10/19/18 15:58 2.0 % (0.0-4.3) 10/19/18 15:58 1.0 % (0.0-1.8) 10/19/18 15:58 0 % 10/19/18 15:58 0 % 10/19/18 15:58 0 % 10/19/18 15:58 0 % 10/19/18 15:58 Nucleated RBC % Not Reportable 10/19/18 15:58 Seg Neutrophils # Man 11.1 K/mm3 (1.8-7.7) H 10/19/18 15:58 Band Neutrophils # 0.0 K/mm3 10/19/18 15:58 0.9 K/mm3 (1.2-5.4) L 10/19/18 15:58 Abs React Lymphs (Man) 0.0 K/mm3 10/19/18 15:58 0.7 K/mm3 (0.0-0.8) 10/19/18 15:58 0.3 K/mm3 (0.0-0.4) 10/19/18 15:58 0.1 K/mm3 (0.0-0.1) 10/19/18 15:58 0.0 K/mm3 10/19/18 15:58 0.0 K/mm3 10/19/18 15:58 0.0 K/mm3 10/19/18 15:58 Blast Cells # 0.0 K/mm3 10/19/18 15:58 WBC Morphology Not Reportable 10/19/18 15:58 Hypersegmented Neuts Not Reportable 10/19/18 15:58 Hyposegmented Neuts Not Reportable 10/19/18 15:58 Hypogranular Neuts Not Reportable 10/19/18 15:58 Not Reportable 10/19/18 15:58 Not Reportable 10/19/18 15:58 Not Reportable 10/19/18 15:58 Not Reportable 10/19/18 15:58 Not Reportable 10/19/18 15:58 Not Reportable 10/19/18 15:58 Not Reportable 10/19/18 15:58 Not Reportable 10/19/18 15:58 Plt Clumps, EDTA Not Reportable 10/19/18 15:58 Not Reportable 10/19/18 15:58 Not Reportable 10/19/18 15:58 Not Reportable 10/19/18 15:58 Plt Morphology Comment Not Reportable 10/19/18 15:58 RBC Morphology Normal 10/19/18 15:58 Dimorphic RBCs Not Reportable 10/19/18 15:58 Not Reportable 10/19/18 15:58 Not Reportable 10/19/18 15:58 Not Reportable 10/19/18 15:58 Not Reportable 10/19/18 15:58 Not Reportable 10/19/18 15:58 Not Reportable 10/19/18 15:58 Not Reportable 10/19/18 15:58 Not Reportable 10/19/18 15:58 Not Reportable 10/19/18 15:58 Not Reportable 10/19/18 15:58 Not Reportable 10/19/18 15:58 Not Reportable 10/19/18 15:58 Not Reportable 10/19/18 15:58 Not Reportable 10/19/18 15:58 Not Reportable 10/19/18 15:58 Not Reportable 10/19/18 15:58 Not Reportable 10/19/18 15:58 Not Reportable 10/19/18 15:58 Not Reportable 10/19/18 15:58 Acanthocytes (Spur) Not Reportable 10/19/18 15:58 Rouleaux Not Reportable 10/19/18 15:58 Not Reportable 10/19/18 15:58 Not Reportable 10/19/18 15:58 Not Reportable 10/19/18 15:58 Not Reportable 10/19/18 15:58 Hem Pathologist Commnt No 10/19/18 15:58 PT 15.1 Sec. (12.2-14.9) H 10/19/18 15:58 INR 1.22 (0.87-1.13) H 10/19/18 15:58 VBG pH 7.487 (7.320-7.420) H 10/19/18 15:58 Sodium 136 mmol/L (137-145) L 10/19/18 15:58 Potassium 3.4 mmol/L (3.6-5.0) L 10/19/18 15:58 Chloride 99.8 mmol/L (98-107) 10/19/18 15:58 Carbon Dioxide 22 mmol/L (22-30) 10/19/18 15:58 18 mmol/L 10/19/18 15:58 BUN 19 mg/dL (7-17) H 10/19/18 15:58 1.8 mg/dL (0.7-1.2) H 10/19/18 15:58 Estimated GFR 36 ml/min 10/19/18 15:58 11 % 10/19/18 15:58 Glucose 139 mg/dL (65-100) H 10/19/18 15:58 Lactic Acid 1.80 mmol/L (0.7-2.0) 10/19/18 20:56 Calcium 9.0 mg/dL (8.4-10.2) 10/19/18 15:58 0.70 mg/dL (0.1-1.2) 10/19/18 15:58 AST 26 units/L (5-40) 10/19/18 15:58 ALT 21 units/L (7-56) 10/19/18 15:58 85 units/L (35-129) 10/19/18 15:58 7.0 g/dL (6.3-8.2) 10/19/18 15:58 3.1 g/dL (3.9-5) L 10/19/18 15:58 0.8 % 10/19/18 15:58 Verito (Yellow) 10/19/18 17:21 Turbid (Clear) 10/19/18 17:21 6.0 (5.0-7.0) 10/19/18 17:21 Ur Specific [place] 1.016 (1.003-1.030) 10/19/18 17:21 >500 mg/dL (Negative) 10/19/18 17:21 Neg mg/dL (Negative) 10/19/18 17:21 Neg mg/dL (Negative) 10/19/18 17:21 Mod (Negative) 10/19/18 17:21 Neg (Negative) 10/19/18 17:21 Neg (Negative) 10/19/18 17:21 < 2.0 mg/dL (<2.0) 10/19/18 17:21 Ur Leukocyte Esterase Mod (Negative) 10/19/18 17:21 > 182.0 /HPF (0.0-6.0) H 10/19/18 17:21 22.0 /HPF (0.0-6.0) 10/19/18 17:21 U Epithel Cells (Auto) 33.0 /HPF (0-13.0) H 10/19/18 17:21 3+ /HPF 10/19/18 17:21 2+ /HPF 10/19/18 17:21 Presumptive negative 10/19/18 19:37 Presumptive negative 10/19/18 19:37 Ur Barbiturates Screen Presumptive negative 10/19/18 19:37 Ur Phencyclidine Scrn Presumptive negative 10/19/18 19:37 Ur Amphetamines Screen Presumptive negative 10/19/18 19:37 U Benzodiazepines Scrn Presumptive negative 10/19/18 19:37 Presumptive positive 10/19/18 19:37 U Marijuana (THC) Screen Presumptive negative 10/19/18 19:37 Disclamer 10/19/18 19:37 Active Medications - Current Medications Current Medications: Generic Name Dose Route Start Last Admin Trade Name Freq PRN Reason Stop Dose Admin Acetaminophen 650 mg 10/19/18 20:03 Tylenol PO Q6H PRN Pain, Mild (1-3) Heparin Sodium (Porcine) 5,000 unit 10/19/18 22:00 10/20/18 09:55 Heparin SUB-Q 5,000 unit Q12HR KAY Administration Ceftriaxone Sodium 1 gm in 50 mls @ 100 mls/hr 10/20/18 10:00 Rocephin/Ns 1 Gm/50 Ml IV 10/22/18 10:29 Q24HR KAY Protocol Sodium Chloride 1,000 mls @ 125 mls/hr 10/19/18 21:00 10/20/18 09:57 Nacl 0.9% 1000 Ml IV 125 mls/hr DIRECT KAY Administration Lorazepam 0.5 mg 10/19/18 20:03 Ativan IV Q4H PRN Anxiety Nicotine 14 mg 10/20/18 10:00 10/20/18 09:55 Habitrol TD 14 mg QDAY KAY Administration
[2018-10-20] MEDS: ROCEPHIN/NS 1 GM/50 ML 1 GM/50 ML BAG IV SCH (12:13)
[2018-10-20] MEDS: TYLENOL PO PRN (12:13)
[2018-10-21] MEDS: NACL 0.9% 1000 ML 1,000 ML IV SCH ×3 (01:08→17:20)
--- NOTE | 2018-10-21 08:08 | Progress Note ---
Assessment and Plan Assessment and plan: 53-year-old -[place] female with history of bipolar, schizophrenia, anxiety, substance abuse, tobacco abuse, cocaine abuse was admitted through [facility] ED with complaints of abdominal pain, nausea, vomiting, diarrhea, fever and chills for the past 3-4 days. --Sepsis; secondary to urinary tract infection; gram-negative rods Fever , leukocytosis , tachycardia , acute kidney injury Continue empiric antibiotics , follow cultures and sensitivities --Acute kidney injury ; secondary to vasomotor nephropathy Cr 1.8 improved to 1.3, IV fluids, monitor renal function Avoid nephrotoxins, --Lactic acidosis; probably secondary to sepsis Follow levels --Hypokalemia; replenished per protocol Monitor electrolytes --Cocaine abuse; Advised to quit recreational drug use --Tobacco Abuse; Smoking cessation advised, nicotine patch as needed --Mild to moderate malnutrition Nutrition supplements, supportive care --History of bipolar disorder; stable Advised to follow behavioral health/psychiatric test upon discharge --DVT PPX; Heparin Monitor closely adjust the management as needed Follow cultures sensitivities and adjust antibiotics as needed Possible discharge tomorrow if stable History Interval history: Patient seen and examined medical records reviewed Patient feels slightly better afebrile, Urine cultures positive for gram-negative rods, pending sensitivities Patient complains of generalized weakness Alert awake oriented Vital signs reviewed Hospitalist Physical - Constitutional Vitals: Temp Pulse Resp BP Pulse Ox 98.8 F 83 16 121/73 100 10/21/18 04:50 10/20/18 21:42 10/21/18 04:50 10/21/18 04:50 10/20/18 21:42 General appearance: Present: no acute distress, cachectic, disheveled - EENT Eyes: Present: PERRL, EOM intact - Neck Neck: Present: supple, normal ROM - Respiratory Respiratory effort: normal Respiratory: bilateral: diminished, negative: rales, rhonchi, wheezing - Cardiovascular Rhythm: regular Heart Sounds: Present: S1 & S2 - Extremities Extremities: no ischemia, No edema - Abdominal General gastrointestinal: soft, non-tender, non-distended, normal bowel sounds - Integumentary Integumentary: Present: clear, warm - Psychiatric Psychiatric: appropriate mood/affect, cooperative - Neurologic Neurologic: CNII-XII intact, moves all extremities Results - Labs CBC & Chem 7: 10/21/18 08:41 10/21/18 08:41 Labs: Laboratory Last Values WBC 13.0 K/mm3 (4.5-11.0) H 10/19/18 15:58 RBC 4.76 M/mm3 (3.65-5.03) 10/19/18 15:58 Hgb 13.2 gm/dl (10.1-14.3) 10/19/18 15:58 Hct 40.4 % (30.3-42.9) 10/19/18 15:58 MCV 85 fl (79-97) 10/19/18 15:58 MCH 28 pg (28-32) 10/19/18 15:58 MCHC 33 % (30-34) 10/19/18 15:58 RDW 13.6 % (13.2-15.2) 10/19/18 15:58 Plt Count 165 K/mm3 (140-440) 10/19/18 15:58 Add Manual Diff Complete 10/19/18 15:58 Total Counted 100 10/19/18 15:58 Seg Neuts % (Manual) 85.0 % (40.0-70.0) H 10/19/18 15:58 0 % 10/19/18 15:58 7.0 % (13.4-35.0) L 10/19/18 15:58 Reactive Lymphs % (Man) 0 % 10/19/18 15:58 5.0 % (0.0-7.3) 10/19/18 15:58 2.0 % (0.0-4.3) 10/19/18 15:58 1.0 % (0.0-1.8) 10/19/18 15:58 0 % 10/19/18 15:58 0 % 10/19/18 15:58 0 % 10/19/18 15:58 0 % 10/19/18 15:58 Nucleated RBC % Not Reportable 10/19/18 15:58 Seg Neutrophils # Man 11.1 K/mm3 (1.8-7.7) H 10/19/18 15:58 Band Neutrophils # 0.0 K/mm3 10/19/18 15:58 0.9 K/mm3 (1.2-5.4) L 10/19/18 15:58 Abs React Lymphs (Man) 0.0 K/mm3 10/19/18 15:58 0.7 K/mm3 (0.0-0.8) 10/19/18 15:58 0.3 K/mm3 (0.0-0.4) 10/19/18 15:58 0.1 K/mm3 (0.0-0.1) 10/19/18 15:58 0.0 K/mm3 10/19/18 15:58 0.0 K/mm3 10/19/18 15:58 0.0 K/mm3 10/19/18 15:58 Blast Cells # 0.0 K/mm3 10/19/18 15:58 WBC Morphology Not Reportable 10/19/18 15:58 Hypersegmented Neuts Not Reportable 10/19/18 15:58 Hyposegmented Neuts Not Reportable 10/19/18 15:58 Hypogranular Neuts Not Reportable 10/19/18 15:58 Not Reportable 10/19/18 15:58 Not Reportable 10/19/18 15:58 Not Reportable 10/19/18 15:58 Not Reportable 10/19/18 15:58 Not Reportable 10/19/18 15:58 Not Reportable 10/19/18 15:58 Not Reportable 10/19/18 15:58 Not Reportable 10/19/18 15:58 Plt Clumps, EDTA Not Reportable 10/19/18 15:58 Not Reportable 10/19/18 15:58 Not Reportable 10/19/18 15:58 Not Reportable 10/19/18 15:58 Plt Morphology Comment Not Reportable 10/19/18 15:58 RBC Morphology Normal 10/19/18 15:58 Dimorphic RBCs Not Reportable 10/19/18 15:58 Not Reportable 10/19/18 15:58 Not Reportable 10/19/18 15:58 Not Reportable 10/19/18 15:58 Not Reportable 10/19/18 15:58 Not Reportable 10/19/18 15:58 Not Reportable 10/19/18 15:58 Not Reportable 10/19/18 15:58 Not Reportable 10/19/18 15:58 Not Reportable 10/19/18 15:58 Not Reportable 10/19/18 15:58 Not Reportable 10/19/18 15:58 Not Reportable 10/19/18 15:58 Not Reportable 10/19/18 15:58 Not Reportable 10/19/18 15:58 Not Reportable 10/19/18 15:58 Not Reportable 10/19/18 15:58 Not Reportable 10/19/18 15:58 Not Reportable 10/19/18 15:58 Not Reportable 10/19/18 15:58 Acanthocytes (Spur) Not Reportable 10/19/18 15:58 Rouleaux Not Reportable 10/19/18 15:58 Not Reportable 10/19/18 15:58 Not Reportable 10/19/18 15:58 Not Reportable 10/19/18 15:58 Not Reportable 10/19/18 15:58 Hem Pathologist Commnt No 10/19/18 15:58 PT 15.1 Sec. (12.2-14.9) H 10/19/18 15:58 INR 1.22 (0.87-1.13) H 10/19/18 15:58 VBG pH 7.487 (7.320-7.420) H 10/19/18 15:58 Sodium 136 mmol/L (137-145) L 10/19/18 15:58 Potassium 3.4 mmol/L (3.6-5.0) L 10/19/18 15:58 Chloride 99.8 mmol/L (98-107) 10/19/18 15:58 Carbon Dioxide 22 mmol/L (22-30) 10/19/18 15:58 18 mmol/L 10/19/18 15:58 BUN 19 mg/dL (7-17) H 10/19/18 15:58 1.8 mg/dL (0.7-1.2) H 10/19/18 15:58 Estimated GFR 36 ml/min 10/19/18 15:58 11 % 10/19/18 15:58 Glucose 139 mg/dL (65-100) H 10/19/18 15:58 Lactic Acid 1.80 mmol/L (0.7-2.0) 10/19/18 20:56 Calcium 9.0 mg/dL (8.4-10.2) 10/19/18 15:58 0.70 mg/dL (0.1-1.2) 10/19/18 15:58 AST 26 units/L (5-40) 10/19/18 15:58 ALT 21 units/L (7-56) 10/19/18 15:58 85 units/L (35-129) 10/19/18 15:58 7.0 g/dL (6.3-8.2) 10/19/18 15:58 3.1 g/dL (3.9-5) L 10/19/18 15:58 0.8 % 10/19/18 15:58 Verito (Yellow) 10/19/18 17:21 Turbid (Clear) 10/19/18 17:21 6.0 (5.0-7.0) 10/19/18 17:21 Ur Specific [place] 1.016 (1.003-1.030) 10/19/18 17:21 >500 mg/dL (Negative) 10/19/18 17:21 Neg mg/dL (Negative) 10/19/18 17:21 Neg mg/dL (Negative) 10/19/18 17:21 Mod (Negative) 10/19/18 17:21 Neg (Negative) 10/19/18 17:21 Neg (Negative) 10/19/18 17:21 < 2.0 mg/dL (<2.0) 10/19/18 17:21 Ur Leukocyte Esterase Mod (Negative) 10/19/18 17:21 > 182.0 /HPF (0.0-6.0) H 10/19/18 17:21 22.0 /HPF (0.0-6.0) 10/19/18 17:21 U Epithel Cells (Auto) 33.0 /HPF (0-13.0) H 10/19/18 17:21 3+ /HPF 10/19/18 17:21 2+ /HPF 10/19/18 17:21 Presumptive negative 10/19/18 19:37 Presumptive negative 10/19/18 19:37 Ur Barbiturates Screen Presumptive negative 10/19/18 19:37 Ur Phencyclidine Scrn Presumptive negative 10/19/18 19:37 Ur Amphetamines Screen Presumptive negative 10/19/18 19:37 U Benzodiazepines Scrn Presumptive negative 10/19/18 19:37 Presumptive positive 10/19/18 19:37 U Marijuana (THC) Screen Presumptive negative 10/19/18 19:37 Disclamer 10/19/18 19:37 Active Medications - Current Medications Current Medications: Generic Name Dose Route Start Last Admin Trade Name Freq PRN Reason Stop Dose Admin Acetaminophen 650 mg 10/19/18 20:03 10/20/18 12:13 Tylenol PO 650 mg Q6H PRN Administration Pain, Mild (1-3) Heparin Sodium (Porcine) 5,000 unit 10/19/18 22:00 10/20/18 21:01 Heparin SUB-Q 5,000 unit Q12HR KAY Administration Ceftriaxone Sodium 1 gm in 50 mls @ 100 mls/hr 10/20/18 10:00 10/20/18 12:13 Rocephin/Ns 1 Gm/50 Ml IV 10/22/18 10:29 100 mls/hr Q24HR KAY Administration Protocol Sodium Chloride 1,000 mls @ 125 mls/hr 10/19/18 21:00 10/21/18 01:08 Nacl 0.9% 1000 Ml IV 125 mls/hr DIRECT KAY Administration Lorazepam 0.5 mg 10/19/18 20:03 Ativan IV Q4H PRN Anxiety Nicotine 14 mg 10/20/18 10:00 10/20/18 09:55 Habitrol TD 14 mg QDAY KAY Administration Nutrition/Malnutrition Assess - Dietary Evaluation Nutrition/Malnutrition Findings: Nutrition Notes Start: 10/20/18 14:05 Freq: Status: Active Protocol: Document 10/20/18 14:05 CATHY (Rec: 10/20/18 14:12 CATHY [email or web address]) Nutrition Notes Need for Assessment generated from: MD Order Initial or Follow up Assessment Current Diagnosis Acute Kidney Injury,Sepsis Other Pertinent Diagnosis UTI, Polysubstance abuse, Bipolar D/O, Schizophrenia Current Diet Regular Labs/Tests Reviewed Pertinent Medications Reviewed Height 5 ft 11 in Weight 55.1 kg Usual Body Weight 65.9 kg [place] Body Weight (kg) 70.45 BMI 16.9 Intake Prior to Admission Poor Weight change and time frame Pt reports unintentional 16.4% wt loss over the past six months sec to "sickness" Weight Status Underweight Subjective/Other Information RD consulted for malnutrition. Pt admitted with c/o abdominal pain. She says she is not tolerating regular diet and requests cream soups, pudding, fruit and ONS on meal trays. Burn Absent Trauma Absent GI Symptoms Diarrhea Minimum of two criteria Yes Energy Intake (severe) < or equal to 50% Estimated Energy Requirement > or equal to 5 days Interpretation of Weight Loss (severe) >10% in 6 months Body Fat Depletion Moderate depletion (severe) Protein-Calorie Malnutrition Severe #1 Nutrition Diagnosis Malnutrition Etiology hx of polysubstance abuse As Evidenced by Signs and Symptoms unintentional wt loss, BMI 16. 9, poor PO intake, subcutaneous fat loss Is patient on ventilator? No Is Patient Ambulatory and/or Out of Bed Yes REE-([facility]-ambulatory/OOB) [ 1627.769 [id number]] Kcal/Kg value to use for calculation 35 Approximate Energy Requirements Using 1929 kcal/Kg Calculation Used for Recommendations Kcal/kg Additional Notes Pro needs 1.2-1.5g/k-83g/ day Fluid needs 1ml/kcal Nutrition Intervention Change Diet Order: Continue current diet order; honor food preferences Add Supplement/Snack (indicate name/kcal Ensure Enlive TID /protein ) Provides kCal: 1,050 Provides Protein (gm) 60 Goal #1 PO intake of meals plus ONS to meet 100% energy and pro needs Goal #2 Wt maintenance and/or gain Anticipated Discharge Needs: Continue ONS 2-3 times daily for wt maintenance Follow-Up By: 10/23/18 Additional Comments F/U: intakes (meals/ONS)
[2018-10-21 09:13] LABS: Hematocrit 35.8 % (30.3-42.9); Hemoglobin 11.7 gm/dl (10.1-14.3); Mean Corpuscular HGB Conc 33 % (30-34); Mean Corpuscular Volume 86 fl (79-97); Platelet Count 161 K/mm3 (140-440); Red Blood Count 4.18 M/mm3 (3.65-5.03); Red Cell Distribution Width 14.1 % (13.2-15.2)
[2018-10-21] MEDS: HEPARIN SUB-Q SCH ×2 (09:28→21:13)
[2018-10-21] MEDS: ROCEPHIN/NS 1 GM/50 ML 1 GM/50 ML BAG IV SCH (09:28)
[2018-10-21] MEDS: HABITROL TD SCH (09:28)
[2018-10-21 09:38] LABS: Calcium 8.5 mg/dL (8.4-10.2)
[2018-10-21 11:07] LABS: Band Neutrophils # (Manual) 0.4 K/mm3; Basophils % (Manual) 0 % (0.0-1.8); Giant Platelets Rare; Platelet Estimate Consistent w Auto; RBC Morphology Normal; Total Cells Counted 100
[2018-10-21] MEDS ORDERED: K-DUR PO ONE (17:00)
[2018-10-21] MEDS: TYLENOL PO PRN (18:19)
[2018-10-22] MEDS: NACL 0.9% 1000 ML 1,000 ML IV SCH ×2 (00:27→09:13)
[2018-10-22] MEDS ORDERED: K-DUR PO ONE (09:00)
[2018-10-22] MEDS: HEPARIN SUB-Q SCH (09:14)
[2018-10-22] MEDS: HABITROL TD SCH (09:14)
[2018-10-22] MEDS: TYLENOL PO PRN (09:17)
[2018-10-22] MEDS: ROCEPHIN/NS 1 GM/50 ML 1 GM/50 ML BAG IV SCH (09:17)
--- NOTE | 2018-10-22 13:03 | Discharge Summary ---
Providers - Providers Date of Admission: 10/19/18 20:03 Date of discharge: 10/22/18 Attending physician: ABELINO BRADLEY 10/19/18 22:04 Consult to Dietitian/Nutrition [CONS] Routine Physician Instructions: Reason For Exam: Reason for Consult: Malnutrition [facility] JENIF[facility] Hospitalization Condition: Serious Disposition: DC-01 TO HOME OR SELFCARE Time spent for discharge: 32 min Core Measure Documentation - Palliative Care Palliative Care/ Comfort Measures: Not Applicable - Core Measures Any of the following diagnoses?: none Exam - Constitutional Vitals: Temp Pulse Resp BP Pulse Ox 99.5 F 69 16 107/70 99 10/22/18 04:58 10/22/18 04:58 10/22/18 04:58 10/22/18 04:58 10/22/18 04:58 General appearance: Present: no acute distress, cachectic, disheveled - EENT Eyes: Present: PERRL, EOM intact - Neck Neck: Present: supple, normal ROM - Respiratory Respiratory effort: normal Respiratory: bilateral: diminished, negative: rales, rhonchi, wheezing - Cardiovascular Rhythm: regular Heart Sounds: Present: S1 & S2 - Extremities Extremities: no ischemia - Abdominal General gastrointestinal: Present: soft, non-tender, non-distended, normal bowel sounds - Integumentary Integumentary: Present: clear, warm - Musculoskeletal Musculoskeletal: strength equal bilaterally, generalized weakness - Psychiatric Psychiatric: appropriate mood/affect, cooperative - Neurologic Neurologic: moves all extremities Plan Activity: no restrictions Diet: regular Additional Instructions: Follow-up primary care physician in 3-4 days Follow up with: PATIENCE SIMON MD [Primary Care Provider] - 3-5 Days Prescriptions: Sulfamethoxazole/Trimethoprim [Bactrim DS TAB] 1 each PO BID #20 tablet Nicotine [Habitrol] 14 mg TD QDAY #30 patch Ibuprofen [Motrin 800 MG tab] 800 mg PO Q8HR PRN #15 tablet PRN Reason: Pain Famotidine [Pepcid] 20 mg PO BID #60 tablet
[2018-10-22 13:54] VITALS: BP 104/69
[2018-10-23] MEDS ORDERED: ROCEPHIN/NS 1 GM/50 ML 1 GM/50 ML BAG IV SCH (10:00)
== END 2018-10-22 13:40 | disposition home or self-care (01) | DRG 871 ==
LOC: ED 15:47 → 4A 20:03 → 3A 10-20 15:20
PROVIDERS: ADMIT Internal Medicine; ATTEND Internal Medicine
DX: A41.9 Sepsis, unspecified organism (principal); N17.0 Acute kidney failure with tubular necrosis; N30.00 Acute cystitis without hematuria; E44.0 Moderate protein-calorie malnutrition; Z68.1 Body mass index [BMI] 19.9 or less, adult; R65.20 Severe sepsis without septic shock; F41.9 Anxiety disorder, unspecified; F20.9 Schizophrenia, unspecified; E87.6 Hypokalemia; F31.9 Bipolar disorder, unspecified; F12.10 Cannabis abuse, uncomplicated; Z60.2 Problems related to living alone; F17.210 Nicotine dependence, cigarettes, uncomplicated; Z90.711 Acquired absence of uterus with remaining cervical stump; Z88.5 Allergy status to narcotic agent
CPT/HCPCS: 36415; 74022; 74176; 80048; 80053; 80307; 81001; 82140; 82565; 82805; 84132; 85007; 85025; 85610; 87040; 87045; 87076; 87086; 87186; 93005; 93010; 96365; 96366; 96375; 99406; G0378; J0696; J1644; J2405; J2543; J7030; J7040

== ENCOUNTER 2019-10-02 15:13 | Emergency (ER) | payer SELFPAY ==
[2019-10-02 15:46] VITALS: BP 138/87
--- NOTE | 2019-10-02 19:23 | Emergency Department Report ---
ED ENT HPI - General Chief complaint: Earache Stated complaint: EAR INFECTION/DIARRHEA Time Seen by Provider: 10/02/19 19:02 Source: patient Mode of arrival: Ambulatory Limitations: No Limitations - History of Present Illness Initial comments: Patient is a 54-year-old female presents emergency room with complaints of left ear pain that began a week ago. She states that it has been scaling. She states she has a foreign body sensation. She denies any ear drainage, fever, nausea, vomiting, hearing changes. She has a past medical history of schizoph devon. Allergy to codeine. - Related Data Previous Rx's Medication Instructions Recorded Last Taken Type Docusate Sodium [Colace CAP] 100 mg PO BID #60 capsule 06/11/17 Unknown Rx Menthol/Camphor [[place] 1 applicatio TP QID PRN #1 tube 02/22/18 Unknown Rx Ointment] Bacitracin Zinc Oint [Antibiotic 1 applicatio TP TID #1 tube 10/05/18 Unknown Rx Oint] Famotidine [Pepcid] 20 mg PO BID #60 tablet 10/22/18 Unknown Rx Ibuprofen [Motrin 800 MG tab] 800 mg PO Q8HR PRN #15 tablet 10/22/18 Unknown Rx Nicotine [Habitrol] 14 mg TD QDAY #30 patch 10/22/18 Unknown Rx Sulfamethoxazole/Trimethoprim 1 each PO BID #20 tablet 10/22/18 Unknown Rx [Bactrim DS TAB] Amoxicillin/Potassium Clav 1 each PO BID 10 Days #20 tablet 10/02/19 Unknown Rx [Augmentin 875-125 Tablet] Naproxen [EC-Naproxen] 500 mg PO BID PRN #14 tablet.dr 10/02/19 Unknown Rx Ofloxacin 0.3% [Floxin 0.3% Otic] 10 ml DAILY 7 Days #1 bottle 10/02/19 Unknown Rx Allergies Allergy/AdvReac Type Severity Reaction Status Date / Time codeine Allergy Vomiting Verified 10/05/18 08:32 ED Dental HPI - General Chief complaint: Earache Stated complaint: EAR INFECTION/DIARRHEA Time Seen by Provider: 10/02/19 19:02 Source: patient Mode of arrival: Ambulatory Limitations: No Limitations - Related Data Previous Rx's Medication Instructions Recorded Last Taken Type Docusate Sodium [Colace CAP] 100 mg PO BID #60 capsule 06/11/17 Unknown Rx Menthol/Camphor [[place] 1 applicatio TP QID PRN #1 tube 02/22/18 Unknown Rx Ointment] Bacitracin Zinc Oint [Antibiotic 1 applicatio TP TID #1 tube 10/05/18 Unknown Rx Oint] Famotidine [Pepcid] 20 mg PO BID #60 tablet 10/22/18 Unknown Rx Ibuprofen [Motrin 800 MG tab] 800 mg PO Q8HR PRN #15 tablet 10/22/18 Unknown Rx Nicotine [Habitrol] 14 mg TD QDAY #30 patch 10/22/18 Unknown Rx Sulfamethoxazole/Trimethoprim 1 each PO BID #20 tablet 10/22/18 Unknown Rx [Bactrim DS TAB] Amoxicillin/Potassium Clav 1 each PO BID 10 Days #20 tablet 10/02/19 Unknown Rx [Augmentin 875-125 Tablet] Naproxen [EC-Naproxen] 500 mg PO BID PRN #14 tablet. 10/02/19 Unknown Rx Ofloxacin 0.3% [Floxin 0.3% Otic] 10 ml DAILY 7 Days #1 bottle 10/02/19 Unknown Rx Allergies Allergy/AdvReac Type Severity Reaction Status Date / Time codeine Allergy Vomiting Verified 10/05/18 08:32 ED Review of Systems ROS: Stated complaint: EAR INFECTION/DIARRHEA Other details as noted in HPI Comment: All other systems reviewed and negative ED Past Medical Hx - Past Medical History Hx Hypertension: No Hx CVA: No Hx Congestive Heart Failure: No Hx Diabetes: No Hx Psychiatric Treatment: Yes (bipolar, schizo, anxiety, substance abuse) Hx Asthma: No Hx COPD: No - Surgical History Additional Surgical History: Partial hyster. ectopic - Social History Smoking Status: Current Every Day Smoker - Medications Home Medications: Home Medications Medication Instructions Recorded Confirmed Last Taken Type Docusate Sodium [Colace CAP] 100 mg PO BID #60 capsule 06/11/17 10/20/18 Unknown Rx Menthol/Camphor [[place] 1 applicatio TP QID PRN #1 tube 02/22/18 10/20/18 Unknown Rx Ointment] Bacitracin Zinc Oint [Antibiotic 1 applicatio TP TID #1 tube 10/05/18 10/20/18 Unknown Rx Oint] Famotidine [Pepcid] 20 mg PO BID #60 tablet 10/22/18 Unknown Rx Ibuprofen [Motrin 800 MG tab] 800 mg PO Q8HR PRN #15 tablet 10/22/18 Unknown Rx Nicotine [Habitrol] 14 mg TD QDAY #30 patch 10/22/18 Unknown Rx Sulfamethoxazole/Trimethoprim 1 each PO BID #20 tablet 10/22/18 Unknown Rx [Bactrim DS TAB] Amoxicillin/Potassium Clav 1 each PO BID 10 Days #20 tablet 10/02/19 Unknown Rx [Augmentin 875-125 Tablet] Naproxen [EC-Naproxen] 500 mg PO BID PRN #14 tablet. 10/02/19 Unknown Rx Ofloxacin 0.3% [Floxin 0.3% Otic] 10 ml DAILY 7 Days #1 bottle 10/02/19 Unknown Rx ED Physical Exam - General Limitations: No Limitations General appearance: alert, in no apparent distress - Head Head exam: Present: atraumatic, normocephalic - Eye Eye exam: Present: normal appearance - ENT ENT exam: Present: normal orophraynx, mucous membranes moist, other (right TM and canal is normal, left TM is normal, the outer ear is erythematous and scali ng, there is a scab present, no foreign body visualized ) - Neurological Exam Neurological exam: Present: alert, oriented X3 - Psychiatric Psychiatric exam: Present: normal affect, normal mood - Skin Skin exam: Present: warm, dry ED Course Vital Signs 10/02/19 15:46 Temperature 97.9 F Pulse Rate 72 Respiratory 18 Rate Blood Pressure 138/87 O2 Sat by Pulse 100 Oximetry ED Medical Decision Making - Medical Decision Making Patient is a 54-year-old female presents emergency room with complaints of left ear pain that began a week ago. She states that it has been scaling. She states she has a foreign body sensation. She denies any ear drainage, fever, nausea, vomiting, hearing changes. She has a past medical history of schizophrenia. Allergy to codeine. vss. on exam: right TM and canal is normal, left TM is normal, the outer ear is erythematous and scaling, there is a scab present, no foreign body visualized. Examination appears consistent with otitis externa. does not appear consistent with abscess or malignant otitis externa. Patient given prescription for antibiotic eardrops, Augmentin, naproxen. Advised patient Please use medication as prescribed. Increase your water intake. Follow-up with a primary care doctor and ENT for reexamination. Return to emergency room for any new or worsening symptoms. Critical care attestation.: If time is entered above; I have spent that time in minutes in the direct care of this critically ill patient, excluding procedure time. ED Disposition Clinical Impression: Otitis externa Qualifiers: Otitis externa type: unspecified type Chronicity: acute Laterality: left Qualified Code(s): H60.502 - Unspecified acute noninfective otitis externa, left ear Disposition: DC- TO HOME OR SELFCARE Is pt being admited?: No Does the pt Need Aspirin: No Condition: Stable Instructions: Otitis Externa (ED) Additional Instructions: Please use medication as prescribed. Increase your water intake. Follow-up with a primary care doctor and ENT for reexamination. Return to emergency room for any new or worsening symptoms. Prescriptions: Amoxicillin/Potassium Clav [Augmentin 875-125 Tablet] 1 each PO BID 10 Days #20 tablet Naproxen [EC-Naproxen] 500 mg PO BID PRN #14 tablet.dr GRACE Reason: pain Ofloxacin 0.3% [Floxin 0.3% Otic] 10 ml DAILY 7 Days #1 bottle Referrals: WALKER RICHARDSON MD [Staff Physician] - 2-3 Days [facility] [Provider Group] - 2-3 Days [facility] [Outside] - 2-3 Days NICK JENNINGS MD [Staff Physician] - 2-3 Days Time of Disposition: 19:22 Print Language: ICELANDIC
== END 2019-10-02 19:43 | disposition home or self-care (01) ==
LOC: ED 15:13
DX: H60.502 Unspecified acute noninfective otitis externa, left ear (principal); F31.9 Bipolar disorder, unspecified; F20.89 Other schizophrenia; F17.200 Nicotine dependence, unspecified, uncomplicated; Z88.6 Allergy status to analgesic agent; Z90.710 Acquired absence of both cervix and uterus; Z79.899 Other long term (current) drug therapy
CPT/HCPCS: 99282

== ENCOUNTER 2019-11-03 12:02 | Emergency (ER) | payer SELFPAY ==
[2019-11-03 12:23] VITALS: BP 117/86
[2019-11-03] MEDS ORDERED: IBUPROFEN 800 MG TAB PO ONE (14:08)
[2019-11-03] MEDS ORDERED: IBUPROFEN 800 MG TAB ONE (14:09)
--- NOTE | 2019-11-03 14:41 | Emergency Department Report ---
ED ENT HPI - General Chief complaint: Earache Stated complaint: EAR INFECTION Time Seen by Provider: 11/03/19 14:39 Source: patient Mode of arrival: Ambulatory Limitations: No Limitations - History of Present Illness Initial comments: 54-year-old -[place] female presents to the emergency room complaining of left earlobe pain x30 days. Patient was seen here last month for the same complaint and was placed on Augmentin and naproxen and ofloxacin eardrops. Patient states that she did not follow-up with anyone. Patient states she she is squeezing out discharge from her earlobe. Onset/Timin -: month(s) Location: L ear Severity: severe Severity scale (0 -10): 10 Quality: aching, constant Consistency: constant Improves with: none Worsens with: other (Manipulation to the ear lobe) - Related Data Previous Rx's Medication Instructions Recorded Last Taken Type Docusate Sodium [Colace CAP] 100 mg PO BID #60 capsule 06/11/17 Unknown Rx Menthol/Camphor [[place] 1 applicatio TP QID PRN #1 tube 02/22/18 Unknown Rx Ointment] Bacitracin Zinc Oint [Antibiotic 1 applicatio TP TID #1 tube 10/05/18 Unknown Rx Oint] Famotidine [Pepcid] 20 mg PO BID #60 tablet 10/22/18 Unknown Rx Ibuprofen [Motrin 800 MG tab] 800 mg PO Q8HR PRN #15 tablet 10/22/18 Unknown Rx Nicotine [Habitrol] 14 mg TD QDAY #30 patch 10/22/18 Unknown Rx Sulfamethoxazole/Trimethoprim 1 each PO BID #20 tablet 10/22/18 Unknown Rx [Bactrim DS TAB] Amoxicillin/Potassium Clav 1 each PO BID 10 Days #20 tablet 10/02/19 Unknown Rx [Augmentin 875-125 Tablet] Naproxen [EC-Naproxen] 500 mg PO BID PRN #14 tablet. 10/02/19 Unknown Rx Ofloxacin 0.3% [Floxin 0.3% Otic] 10 ml DAILY 7 Days #1 bottle 10/02/19 Unknown Rx Acetaminophen [Acetaminophen 8 650 mg PO Q8H PRN #21 tablet.er 11/03/19 Unknown Rx Hour] Sulfamethoxazole/Trimethoprim 1 each PO BID 10 Days #20 tablet 11/03/19 Unknown Rx [Bactrim DS TAB] Allergies Allergy/AdvReac Type Severity Reaction Status Date / Time codeine Allergy Vomiting Verified 10/05/18 08:32 ED Dental HPI - General Chief complaint: Earache Stated complaint: EAR INFECTION Time Seen by Provider: 11/03/19 14:39 Source: patient Mode of arrival: Ambulatory Limitations: No Limitations - Related Data Previous Rx's Medication Instructions Recorded Last Taken Type Docusate Sodium [Colace CAP] 100 mg PO BID #60 capsule 06/11/17 Unknown Rx Menthol/Camphor [[place] 1 applicatio TP QID PRN #1 tube 02/22/18 Unknown Rx Ointment] Bacitracin Zinc Oint [Antibiotic 1 applicatio TP TID #1 tube 10/05/18 Unknown Rx Oint] Famotidine [Pepcid] 20 mg PO BID #60 tablet 10/22/18 Unknown Rx Ibuprofen [Motrin 800 MG tab] 800 mg PO Q8HR PRN #15 tablet 10/22/18 Unknown Rx Nicotine [Habitrol] 14 mg TD QDAY #30 patch 10/22/18 Unknown Rx Sulfamethoxazole/Trimethoprim 1 each PO BID #20 tablet 10/22/18 Unknown Rx [Bactrim DS TAB] Amoxicillin/Potassium Clav 1 each PO BID 10 Days #20 tablet 10/02/19 Unknown Rx [Augmentin 875-125 Tablet] Naproxen [EC-Naproxen] 500 mg PO BID PRN #14 tablet.dr 10/02/19 Unknown Rx Ofloxacin 0.3% [Floxin 0.3% Otic] 10 ml DAILY 7 Days #1 bottle 10/02/19 Unknown Rx Acetaminophen [Acetaminophen 8 650 mg PO Q8H PRN #21 tablet.er 11/03/19 Unknown Rx Hour] Sulfamethoxazole/Trimethoprim 1 each PO BID 10 Days #20 tablet 11/03/19 Unknown Rx [Bactrim DS TAB] Allergies Allergy/AdvReac Type Severity Reaction Status Date / Time codeine Allergy Vomiting Verified 10/05/18 08:32 ED Review of Systems ROS: Stated complaint: EAR INFECTION Other details as noted in HPI Comment: All other systems reviewed and negative ED Past Medical Hx - Past Medical History Previous Medical History?: Yes Hx Hypertension: No Hx CVA: No Hx Congestive Heart Failure: No Hx Diabetes: No Hx Psychiatric Treatment: Yes (bipolar, schizo, anxiety, substance abuse) Hx Asthma: No Hx COPD: No - Surgical History Past Surgical History?: Yes Additional Surgical History: Partial hyster. ectopic - Social History Smoking Status: Current Every Day Smoker Substance Use Type: Alcohol - Medications Home Medications: Home Medications Medication Instructions Recorded Confirmed Last Taken Type Docusate Sodium [Colace CAP] 100 mg PO BID #60 capsule 06/11/17 10/20/18 Unknown Rx Menthol/Camphor [[place] 1 applicatio TP QID PRN #1 tube 02/22/18 10/20/18 Unknown Rx Ointment] Bacitracin Zinc Oint [Antibiotic 1 applicatio TP TID #1 tube 10/05/18 10/20/18 Unknown Rx Oint] Famotidine [Pepcid] 20 mg PO BID #60 tablet 10/22/18 Unknown Rx Ibuprofen [Motrin 800 MG tab] 800 mg PO Q8HR PRN #15 tablet 10/22/18 Unknown Rx Nicotine [Habitrol] 14 mg TD QDAY #30 patch 10/22/18 Unknown Rx Sulfamethoxazole/Trimethoprim 1 each PO BID #20 tablet 10/22/18 Unknown Rx [Bactrim DS TAB] Amoxicillin/Potassium Clav 1 each PO BID 10 Days #20 tablet 10/02/19 Unknown Rx [Augmentin 875-125 Tablet] Naproxen [EC-Naproxen] 500 mg PO BID PRN #14 tablet.dr 10/02/19 Unknown Rx Ofloxacin 0.3% [Floxin 0.3% Otic] 10 ml DAILY 7 Days #1 bottle 10/02/19 Unknown Rx Acetaminophen [Acetaminophen 8 650 mg PO Q8H PRN #21 tablet.er 11/03/19 Unknown Rx Hour] Sulfamethoxazole/Trimethoprim 1 each PO BID 10 Days #20 tablet 11/03/19 Unknown Rx [Bactrim DS TAB] ED Physical Exam - General Limitations: No Limitations ED Course Vital Signs 11/03/19 11/03/19 12:20 14:10 Temperature 97.8 F Pulse Rate 68 Respiratory 20 20 Rate Blood Pressure 117/86 O2 Sat by Pulse 100 Oximetry ED Medical Decision Making - Medical Decision Making 54-year-old -[place] female presents to the emergency room complaining of left earlobe pain x30 days. Patient was seen here last month for the same complaint and was placed on Augmentin and naproxen and ofloxacin eardrops. Patient states that she did not follow-up with anyone. Patient states she she is squeezing out discharge from her earlobe. Discussed with patient is important for her to follow-up with a specialist. Will place patient on Bactrim double strength 1 tablet p.o. twice daily for 10 days. Patient can take [id number] Tylenol or ibuprofen. Critical care attestation.: If time is entered above; I have spent that time in minutes in the direct care of this critically ill patient, excluding procedure time. ED Disposition Clinical Impression: Cellulitis of left earlobe Disposition: DC- TO HOME OR SELFCARE Is pt being admited?: No Does the pt Need Aspirin: No Condition: Stable Instructions: Cellulitis (ED) Additional Instructions: Complete your antibiotics take your pain medication and follow-up with a specialist. Prescriptions: Acetaminophen [Acetaminophen 8 Hour] 650 mg PO Q8H PRN #21 tablet.er PRN Reason: Pain , Severe (7-10) Sulfamethoxazole/Trimethoprim [Bactrim DS TAB] 1 each PO BID 10 Days #20 tablet Referrals: NICK JENNINGS MD [Staff Physician] - 3-5 Days WALKER RICHARDSON MD [Staff Physician] - 3-5 Days [facility] [Provider Group] - 3-5 Days
== END 2019-11-03 15:02 | disposition home or self-care (01) ==
LOC: ED 12:02
DX: H60.12 Cellulitis of left external ear (principal); F17.200 Nicotine dependence, unspecified, uncomplicated; F25.0 Schizoaffective disorder, bipolar type; F41.9 Anxiety disorder, unspecified; Z79.899 Other long term (current) drug therapy; Z88.6 Allergy status to analgesic agent; Z90.710 Acquired absence of both cervix and uterus; Z98.890 Other specified postprocedural states
CPT/HCPCS: 99282

== ENCOUNTER 2020-04-08 11:23 | Emergency (ER) | payer SELFPAY ==
[2020-04-08 11:39] VITALS: BP 125/87
--- NOTE | 2020-04-08 12:56 | XRay Report ---
CHEST PA AND LATERAL VIEWS INDICATION: cough. COMPARISON: 10/19/2018. FINDINGS: Support devices: None. Heart: Within normal limits. Lungs/Pleura: No acute pulmonary or pleural findings. There is persistent scarring in the right upper lobe greatest at the apex. There is mild scarring in the right lung base which is stable. IMPRESSION: 1. Stable scarring in the right lung. No superimposed acute findings. Signer Name: Doe Baum MD Signed: 04/08/2020 12:51 PM Workstation Name: [id number]
--- NOTE | 2020-04-08 13:11 | Emergency Department Report ---
Upper Respiratory HPI - HPI Chief Complaint: Upper Respiratory Infection Stated Complaint: BODY ACHES Time Seen by Provider: 04/08/20 11:43 Duration: 1 week URI Symptoms: Rhinorrhea: Yes, Sore Throat: No, Ear Pain: No, Cough: Yes, Shortness of Breath: No, Sick Contacts: No, Unable to Take Fluids: No, Urine Output Abnormal: No, Listless Behavior: No Other History: This is a 54-year-old female nontoxic, well nourished in appearance, no acute signs of distress presents to the ED with c/o of productive cough, loss of taste and smell, left ear ache, subjective fever, chills, body aches, rhinorrhea, nasal congestion x1 week. Patient describes productive cough as yellow mucus production. Patient denies any sick contacts. Patient denies any recent travels, long car, recent hospital stays. Patient denies any calf pain or calf tenderness. Patient denies any chest pain, short of breath, nausea, vomiting, hemoptysis, numbness, tingling, headache or stiff neck. Patient stated allergies to codeine denies any significant past medical history. Patient denies taking any medication prior to arrival. - Home Meds and Allergies Home Medications: Previous Rx's Medication Instructions Recorded Last Taken Type Docusate Sodium [Colace CAP] 100 mg PO BID #60 capsule 06/11/17 Unknown Rx Menthol/Camphor [[place] 1 applicatio TP QID PRN #1 tube 02/22/18 Unknown Rx Ointment] Bacitracin Zinc Oint [Antibiotic 1 applicatio TP TID #1 tube 10/05/18 Unknown Rx Oint] Famotidine [Pepcid] 20 mg PO BID #60 tablet 10/22/18 Unknown Rx Ibuprofen [Motrin 800 MG tab] 800 mg PO Q8HR PRN #15 tablet 10/22/18 Unknown Rx Nicotine [Habitrol] 14 mg TD QDAY #30 patch 10/22/18 Unknown Rx Sulfamethoxazole/Trimethoprim 1 each PO BID #20 tablet 10/22/18 Unknown Rx [Bactrim DS TAB] Amoxicillin/Potassium Clav 1 each PO BID 10 Days #20 tablet 10/02/19 Unknown Rx [Augmentin 875-125 Tablet] Naproxen [EC-Naproxen] 500 mg PO BID PRN #14 10/02/19 Unknown Rx Ofloxacin 0.3% [Floxin 0.3% Otic] 10 ml DAILY 7 Days #1 bottle 10/02/19 Unknown Rx Acetaminophen [Acetaminophen 8 650 mg PO Q8H PRN #21 tablet.er 11/03/19 Unknown Rx Hour] Sulfamethoxazole/Trimethoprim 1 each PO BID 10 Days #20 tablet 11/03/19 Unknown Rx [Bactrim DS TAB] Amoxicillin [Amoxicillin TAB] 875 mg PO BID #20 tablet 04/08/20 Unknown Rx Allergies/Adverse Reactions: Allergies Allergy/AdvReac Type Severity Reaction Status Date / Time codeine Allergy Vomiting Verified 10/05/18 08:32 ED Review of Systems ROS: Stated complaint: BODY ACHES Other details as noted in HPI Constitutional: chills, fever Eyes: denies: eye pain, eye discharge, vision change ENT: ear pain, congestion. denies: throat pain Respiratory: cough. denies: shortness of breath, wheezing Cardiovascular: denies: chest pain, palpitations Endocrine: no symptoms reported Gastrointestinal: denies: abdominal pain, nausea, diarrhea Genitourinary: denies: urgency, dysuria, discharge Musculoskeletal: denies: back pain, joint swelling, arthralgia Skin: denies: rash, lesions Neurological: denies: headache, weakness, paresthesias Psychiatric: denies: anxiety, depression Hematological/Lymphatic: denies: easy bleeding, easy bruising ED Past Medical Hx - Past Medical History Previous Medical History?: Yes Hx Hypertension: No Hx CVA: No Hx Congestive Heart Failure: No Hx Diabetes: No Hx Psychiatric Treatment: Yes (bipolar, schizo, anxiety, substance abuse) Hx Asthma: No Hx COPD: No - Surgical History Past Surgical History?: Yes Additional Surgical History: Partial hyster. ectopic - Social History Smoking Status: Current Every Day Smoker Substance Use Type: Alcohol - Medications Home Medications: Home Medications Medication Instructions Recorded Confirmed Last Taken Type Docusate Sodium [Colace CAP] 100 mg PO BID #60 capsule 06/11/17 10/20/18 Unknown Rx Menthol/Camphor [[place] 1 applicatio TP QID PRN #1 tube 02/22/18 10/20/18 Unknown Rx Ointment] Bacitracin Zinc Oint [Antibiotic 1 applicatio TP TID #1 tube 10/05/18 10/20/18 Unknown Rx Oint] Famotidine [Pepcid] 20 mg PO BID #60 tablet 10/22/18 Unknown Rx Ibuprofen [Motrin 800 MG tab] 800 mg PO Q8HR PRN #15 tablet 10/22/18 Unknown Rx Nicotine [Habitrol] 14 mg TD QDAY #30 patch 10/22/18 Unknown Rx Sulfamethoxazole/Trimethoprim 1 each PO BID #20 tablet 10/22/18 Unknown Rx [Bactrim DS TAB] Amoxicillin/Potassium Clav 1 each PO BID 10 Days #20 tablet 10/02/19 Unknown Rx [Augmentin 875-125 Tablet] Naproxen [EC-Naproxen] 500 mg PO BID PRN #14 tablet.dr 10/02/19 Unknown Rx Ofloxacin 0.3% [Floxin 0.3% Otic] 10 ml DAILY 7 Days #1 bottle 10/02/19 Unknown Rx Acetaminophen [Acetaminophen 8 650 mg PO Q8H PRN #21 tablet.er 11/03/19 Unknown Rx Hour] Sulfamethoxazole/Trimethoprim 1 each PO BID 10 Days #20 tablet 11/03/19 Unknown Rx [Bactrim DS TAB] Amoxicillin [Amoxicillin TAB] 875 mg PO BID #20 tablet 04/08/20 Unknown Rx ED Bronchiolitis Physical Exam - Exam General: Vital signs noted. No distress. Alert and acting appropriately. Neurologic: Alert and oriented, no deficits. Musculoskeletal: Unremarkable. ED Bronchiolitis Tests - Testing Testing: CXR: Normal/Negative ED Physical Exam - General Limitations: No Limitations General appearance: alert, in no apparent distress - Head Head exam: Present: atraumatic, normocephalic - Eye Eye exam: Present: normal appearance - Expanded ENT Exam Expanded Ear exam: Present: normal external inspection TM/Canal exam: Erythema: Left TM, Bulging: Left TM Mouth exam: Present: normal external inspection. Absent: drooling, trismus, muffled voice Teeth exam: Present: normal inspection Throat exam: Positive: normal inspection. Negative: tonsillar erythema, tonsillomegaly, tonsillar exudate, R peritonsillar mass, L peritonsillar mass - Neck Neck exam: Present: normal inspection, full ROM. Absent: tenderness, meningismus, lymphadenopathy - Respiratory Respiratory exam: Present: normal lung sounds bilaterally. Absent: respiratory distress, wheezes, rales, rhonchi, stridor, chest wall tenderness, accessory muscle use, decreased breath sounds, prolonged expiratory - Cardiovascular Cardiovascular Exam: Present: regular rate, normal rhythm, normal heart sounds. Absent: bradycardia, tachycardia, irregular rhythm, systolic murmur, diastolic murmur, rubs, gallop - Extremities Exam Extremities exam: Present: full ROM - Back Exam Back exam: Present: full ROM - Neurological Exam Neurological exam: Present: alert, oriented X3, normal gait - Psychiatric Psychiatric exam: Present: normal affect, normal mood - Skin Skin exam: Present: warm, dry, intact, normal color. Absent: rash ED Course Vital Signs 04/08/20 11:36 Temperature 98.5 F Pulse Rate 106 H Respiratory 20 Rate Blood Pressure 125/87 O2 Sat by Pulse 98 Oximetry - Reevaluation(s) Reevaluation #1: 04/08/20 13:11 Patient is speaking in full sentences with no signs of distress noted. ED Medical Decision Making - Radiology Data [facility] [address] [place] [address] XRay Report Signed Patient: NATALY CANAS MR#: [id number] : 1965 Acct:[id number] Age/Sex: 54 / F ADM Date: 04/08/20 Loc: ED Attending Dr: Ordering Physician: SO CHRISTIAN NP Date of Service: 04/08/20 Procedure(s): XR chest routine 2V Accession Number(s): [id number] cc: SO CHRISTIAN NP Fluoro Time In Minutes: CHEST PA AND LATERAL VIEWS INDICATION: cough. COMPARISON: 10/19/2018. FINDINGS: Support devices: None. Heart: Within normal limits. Lungs/Pleura: No acute pulmonary or pleural findings. There is persistent scarring in the right upper lobe greatest at the apex. There is mild scarring in the right lung base which is stable. IMPRESSION: 1. Stable scarring in the right lung. No superimposed acute findings. Signer Name: Doe Baum MD Signed: 04/08/2020 12:51 PM Workstation Name: [id number] Transcribed By: YVETTE Dictated By: Doe Baum MD Electronically Authenticated By: Doe Baum MD Signed Date/Time: 04/08/20 1251 DD/ 1250 TD/TT: - Medical Decision Making This is a 54-year-old female that presents with suspected Covid with left otitis media. Patient is stable and was examined by me. Chest x-ray has been obtained and dictated by radiologist with normal exam. Patient is notified of x-ray results with no questions noted. Patient does meet clinical concerns of COVID-19 and patient was instructed and educated on signs and symptoms and to self quarantine and seek medical attention as soon as possible if symptoms worsen. Patient be treated with amoxicillin as she requested for a nonexpensive/free medication. She was instructed that she could get this at [facility] typically for free. Patient was instructed to increase hydration, rest and take Tylenol for fever episodes. Vitals stable. Patient is nonfebrile and normal heart rate. Patient was instructed Follow-up with a primary care doctor in 3-5 days or if symptoms worsen and continue return to emergency room as soon as possible. At time time of discharge, the patient does not seem toxic or ill in appearance. No acute signs of distress noted. Patient agrees to discharge treatment plan of care. No further questions noted by the patient.nt. Critical care attestation.: If time is entered above; I have spent that time in minutes in the direct care of this critically ill patient, excluding procedure time. ED Disposition Clinical Impression: Suspected COVID-19 virus infection Left otitis media Qualifiers: Otitis media type: unspecified Qualified Code(s): H66.92 - Otitis media, unspecified, left ear Disposition: DC-01 TO HOME OR SELFCARE Is pt being admited?: No Does the pt Need Aspirin: No Condition: Stable Instructions: Otitis Media, Adult, [id number], COVID-19 Frequently Asked Questions, COVID-19 Additional Instructions: Follow-up with a primary care doctor in 3-5 days or if symptoms worsen and continue return to emergency room as soon as possible. As educated and instructed to you must self quarantine yourself and people that you have been in close contact with similar symptoms for the next 14 days. Please see your nearest health department or primary care doctor that you are referred to for COVID testing. Increased rest, hydration, and take Tylenol as prescribed for fever episode. Prescriptions: Amoxicillin [Amoxicillin TAB] 875 mg PO BID #20 tablet Referrals: GRAHAM FLOWERS MD [Primary Care Provider] - 3-5 Days WALKER RICHARDSON MD [Staff Physician] - 3-5 Days Time of Disposition: 13:13
== END 2020-04-08 13:18 | disposition home or self-care (01) ==
LOC: ED 11:23
DX: H66.92 Otitis media, unspecified, left ear (principal); F25.0 Schizoaffective disorder, bipolar type; F41.9 Anxiety disorder, unspecified; F17.200 Nicotine dependence, unspecified, uncomplicated; Z90.710 Acquired absence of both cervix and uterus; Z98.890 Other specified postprocedural states; Z88.6 Allergy status to analgesic agent; Z79.899 Other long term (current) drug therapy; Z20.822 Contact with and (suspected) exposure to COVID-19
CPT/HCPCS: 71046; 99283

== ENCOUNTER 2021-07-25 03:58 | Emergency (ER) | payer SELFPAY ==
[2021-07-25 04:23] VITALS: BP 132/81
== END 2021-07-26 07:38 | disposition left against medical advice (07) ==
LOC: ED 03:58
DX: T63.301A Toxic effect of unspecified spider venom, accidental (unintentional), initial encounter (principal); H92.02 Otalgia, left ear; Z53.21 Procedure and treatment not carried out due to patient leaving prior to being seen by health care provider; Y92.89 Other specified places as the place of occurrence of the external cause

== ENCOUNTER 2021-10-06 11:33 | Emergency (ER) | payer SELFPAY ==
[2021-10-06 11:37] VITALS: BP 160/100
[2021-10-06 14:56] LABS: Hematocrit 42.6 % (30.3-42.9); Mean Corpuscular HGB Conc 33 % (30-34); Mean Corpuscular Volume 86 fl (79-97); Platelet Count 209 K/mm3 (140-440); Red Blood Count 4.99 M/mm3 (3.65-5.03); Red Cell Distribution Width 14.2 % (13.2-15.2)
[2021-10-06 14:58] LABS: Albumin 4.1 g/dL (3.9-5); Calcium 9.7 mg/dL (8.4-10.2)
[2021-10-06 15:47] LABS: Color,Urine Yellow (Yellow)
[2021-10-06 15:48] LABS: Bacteria,Urine 2+ /HPF (Negative); WBC,Urine > 182.0 /HPF (0.0-6.0)
[2021-10-06 15:49] LABS: Mucus,Urine 1+ /HPF
[2021-10-06] MEDS ORDERED: SODIUM CHLORIDE 0.9% 1000 ML 1,000 ML IV ONE (16:32)
[2021-10-06] MEDS ORDERED: KETOROLAC 30 MG/1 ML INJ IV ONE (17:01)
[2021-10-06] MEDS ORDERED: cefTRIAXone/NS 1 GM/50 ML 1 GM/50 ML BAG IV ONE (17:01)
--- NOTE | 2021-10-06 17:04 | Emergency Department Report ---
ED Female HPI - General Chief complaint: Urogenital-Female Stated complaint: VAGINAL/EAR PAIN Time Seen by Provider: 10/06/21 13:38 Source: patient, EMS Mode of arrival: Stretcher Limitations: No Limitations - History of Present Illness Initial comments: 56-year-old female with history of frequent UTIs presenting to the emergency department with burning with urination. Patient reports been going on for a few days, she is having some burning in vagina with pain with hematuria. Symptoms associated with hematuria, urinary frequency. She denies abdominal pain, she denies fever, no nausea or vomiting. Symptoms are worsened with nothing and improves with nothing. Sexually active female. No concern about an STD. MD Complaint: dysuria, pelvic pain -: Gradual, days(s) Severity: moderate Severity scale (0 -10): 10 Quality: sharp Consistency: constant Improves with: none Worsens with: urination Are you Now?: No Associated Symptoms: abdominal pain, dysuria, hematuria. denies: vaginal discharge, vaginal bleeding, nausea/vomiting, fever/chills, headaches, loss of appetite, rash, seizure, shortness of breath, syncope, weakness - Related Data Previous Rx's Medication Instructions Recorded Last Taken Type Docusate Sodium [Colace CAP] 100 mg PO BID #60 capsule 06/11/17 Unknown Rx Menthol/Camphor [[place] 1 applicatio TP QID PRN #1 tube 02/22/18 Unknown Rx Ointment] Bacitracin Zinc Oint [Antibiotic 1 applicatio TP TID #1 tube 10/05/18 Unknown Rx Oint] Famotidine [Pepcid] 20 mg PO BID #60 tablet 10/22/18 Unknown Rx Nicotine [Habitrol] 14 mg TD QDAY #30 patch 10/22/18 Unknown Rx Sulfamethoxazole/Trimethoprim 1 each PO BID #20 tablet 10/22/18 Unknown Rx [Bactrim DS TAB] Amoxicillin/Potassium Clav 1 each PO BID 10 Days #20 tablet 10/02/19 Unknown Rx [Augmentin 875-125 Tablet] Naproxen [EC-Naproxen] 500 mg PO BID PRN #14 tablet. 10/02/19 Unknown Rx Ofloxacin 0.3% [Floxin 0.3% Otic] 10 ml DAILY 7 Days #1 bottle 10/02/19 Unknown Rx Acetaminophen [Acetaminophen 8 650 mg PO Q8H PRN #21 tablet.er 11/03/19 Unknown Rx Hour] Sulfamethoxazole/Trimethoprim 1 each PO BID 10 Days #20 tablet 11/03/19 Unknown Rx [Bactrim DS TAB] Amoxicillin [Amoxicillin TAB] 875 mg PO BID #20 tablet 04/08/20 Unknown Rx Ibuprofen [Motrin 800 MG tab] 800 mg PO Q8HR PRN #15 tablet 10/06/21 Unknown Rx Phenazopyridine [Pyridium] 200 mg PO BID #12 tab 10/06/21 Unknown Rx cephALEXin [Keflex] 500 mg PO Q12HR #20 cap 10/06/21 Unknown Rx Allergies Allergy/AdvReac Type Severity Reaction Status Date / Time codeine Allergy Vomiting Verified 07/25/21 04:24 ED Review of Systems ROS: Stated complaint: VAGINAL/EAR PAIN Other details as noted in HPI Eyes: as per HPI ENT: as per HPI Respiratory: denies: cough Cardiovascular: denies: chest pain Endocrine: denies: excessive sweating, intolerance to cold, intolerance to heat Gastrointestinal: denies: abdominal pain, nausea, vomiting Genitourinary: urgency, dysuria, frequency, hematuria Skin: denies: rash Neurological: denies: headache, weakness Psychiatric: denies: anxiety, auditory hallucinations ED Past Medical Hx - Past Medical History Hx Hypertension: No Hx CVA: No Hx Congestive Heart Failure: No Hx Diabetes: No Hx Psychiatric Treatment: Yes (bipolar, schizo, anxiety, substance abuse) Hx Asthma: No Hx COPD: No - Surgical History Additional Surgical History: Partial hyster. ectopic - Social History Smoking Status: Never Smoker Substance Use Type: None - Medications Home Medications: Home Medications Medication Instructions Recorded Confirmed Last Taken Type Docusate Sodium [Colace CAP] 100 mg PO BID #60 capsule 06/11/17 10/20/18 Unknown Rx Menthol/Camphor [[place] 1 applicatio TP QID PRN #1 tube 02/22/18 10/20/18 Unknown Rx Ointment] Bacitracin Zinc Oint [Antibiotic 1 applicatio TP TID #1 tube 10/05/18 10/20/18 Unknown Rx Oint] Famotidine [Pepcid] 20 mg PO BID #60 tablet 10/22/18 Unknown Rx Nicotine [Habitrol] 14 mg TD QDAY #30 patch 10/22/18 Unknown Rx Sulfamethoxazole/Trimethoprim 1 each PO BID #20 tablet 10/22/18 Unknown Rx [Bactrim DS TAB] Amoxicillin/Potassium Clav 1 each PO BID 10 Days #20 tablet 10/02/19 Unknown Rx [Augmentin 875-125 Tablet] Naproxen [EC-Naproxen] 500 mg PO BID PRN #14 tablet.dr 10/02/19 Unknown Rx Ofloxacin 0.3% [Floxin 0.3% Otic] 10 ml DAILY 7 Days #1 bottle 10/02/19 Unknown Rx Acetaminophen [Acetaminophen 8 650 mg PO Q8H PRN #21 tablet.er 11/03/19 Unknown Rx Hour] Sulfamethoxazole/Trimethoprim 1 each PO BID 10 Days #20 tablet 11/03/19 Unknown Rx [Bactrim DS TAB] Amoxicillin [Amoxicillin TAB] 875 mg PO BID #20 tablet 04/08/20 Unknown Rx Ibuprofen [Motrin 800 MG tab] 800 mg PO Q8HR PRN #15 tablet 10/06/21 Unknown Rx Phenazopyridine [Pyridium] 200 mg PO BID #12 tab 10/06/21 Unknown Rx cephALEXin [Keflex] 500 mg PO Q12HR #20 cap 10/06/21 Unknown Rx ED Physical Exam - General Limitations: No Limitations General appearance: alert, in no apparent distress - Head Head exam: Present: atraumatic - Eye Pupils: Present: normal accommodation - ENT ENT exam: Present: normal exam, normal orophraynx - Neck Neck exam: Present: normal inspection - Respiratory Respiratory exam: Present: normal lung sounds bilaterally. Absent: respiratory distress - Cardiovascular Cardiovascular Exam: Present: regular rate, normal rhythm - GI/Abdominal GI/Abdominal exam: Present: soft, normal bowel sounds. Absent: distended, tenderness - Extremities Exam Extremities exam: Present: normal inspection, full ROM - Back Exam Back exam: Present: normal inspection, full ROM. Absent: tenderness, CVA tenderness (R), CVA tenderness (L) - Neurological Exam Neurological exam: Present: alert, oriented X3 - Psychiatric Psychiatric exam: Present: normal affect, normal mood - Skin Skin exam: Present: warm, dry, intact, normal color ED Course Vital Signs 10/06/21 11:36 Temperature 98.1 F Pulse Rate 80 Respiratory 14 Rate Blood Pressure 160/100 [Left] O2 Sat by Pulse 100 Oximetry ED Medical Decision Making - Lab Data Result diagrams: 10/06/21 14:24 10/06/21 14:24 - Medical Decision Making Labs appear to be stable and at baseline, as of 10/21/2018, her BUN/creatinine was 12 and 1.3, today BUN/creatinine is 22 and 1.3 Patient's previous urine culture was susceptible to ceftriaxone. Have given a shot of ceftriaxone, have given a liter of fluids for rehydration, I also treated her pain with improvement. Upon reevaluation she is vital signs are stable, she is afebrile she is ambulating steadily and tolerating oral intake without vomiting. Patient states she does not have any insurance at this time Referred her to the free clinic, I will also encourage her to make sure she is following up for further evaluation and have discussed return precautions with patient's Patient remained stable nontoxic-appearing, afebrile, ambulating steadily without assistance. Gone over ED findings with patient as well as plan for follow-up. Also discussed return precautions with patient, all questions and concerns addressed. Patient is stable to be discharged follow-up outpatient. Audio voice dictation device used, hence the chart might contain some dictation errors, mispronunciations, wrong spelling and wrong verbiage. Critical care attestation.: If time is entered above; I have spent that time in minutes in the direct care of this critically ill patient, excluding procedure time. ED Disposition Clinical Impression: Urinary tract infection with hematuria, Dysuria, Dehydration Disposition: 01 HOME / SELF CARE / HOMELESS Is pt being admited?: No Does the pt Need Aspirin: No Condition: Stable Instructions: Dehydration, Adult, [id number], Urinary Tract Infection, Adult Prescriptions: cephALEXin [Keflex] 500 mg PO Q12HR #20 cap Ibuprofen [Motrin 800 MG tab] 800 mg PO Q8HR PRN #15 tablet PRN Reason: Pain Phenazopyridine [Pyridium] 200 mg PO BID #12 tab Referrals: WALKER RICHARDSON MD [Staff Physician] - 3-5 Days
== END 2021-10-06 18:45 | disposition home or self-care (01) ==
LOC: ED 11:33
DX: N39.0 Urinary tract infection, site not specified (principal); R31.9 Hematuria, unspecified; R30.0 Dysuria; E86.0 Dehydration; Z88.6 Allergy status to analgesic agent; F31.9 Bipolar disorder, unspecified
CPT/HCPCS: 36415; 80053; 81001; 85027; 96361; 96365; 96375; 99284; J0696; J1885; J7030